=== PATIENT | female | born 1935 | race Caucasian/White ===

== ENCOUNTER → 2016-09-13 | Outpatient (CLI) | payer OTHER ==
[~2016-09-13] MED LIST: ASPI81TA28 PO; ATOR-22 PO; CHOL1000 PO; FERR1TAB62 PO; GLIM4TAB2 PO; HYDR-5688 PO; LISI-461 PO; OMEG10007 PO; PIOG1TAB20 PO; SITA100T3 PO; TIMO0.5S2 OPB
[2016-09-13 15:33] LABS: BASO % 1.2 %; BASO ABS # 0.09 K/uL (0-0.2); COMPLETE YES; EOS % 3.3 %; HEMATOCRIT 32.6 % (37-47); IG% 0.3 %; LYMPH % 21.9 %; LYMPH ABS # 1.68 K/uL (1.2-3.4); MEAN CELL VOLUME 95.6 fL (80-100); MEAN CORPUSCULAR HEMOGLOBIN 31.7 pg (25-34); MEAN CORPUSCULAR HGB CONC 33.1 g/dl (32-36); MEAN PLATELET VOLUME 8.7 fL (7.4-10.4); MONO % 8.5 %; NEUT % 64.8 %; PLATELET COUNT 319 K/uL (130-400); RED BLOOD COUNT 3.41 M/uL (4.2-5.4); WHITE BLOOD COUNT 7.66 K/uL (4.8-10.8)
[2016-09-13 16:01] LABS: BLOOD UREA NITROGEN 32 mg/dl (7-18); BUN/CREATININE RATIO 28.7 (10-20); CALCIUM 8.7 mg/dl (8.5-10.1); CARBON DIOXIDE 27 mmol/L (21-32); CHLORIDE 102 mmol/L (98-107); GLUCOSE 180 mg/dl (70-99); POTASSIUM 4.1 mmol/L (3.5-5.1); SODIUM 137 mmol/L (136-145)
== END | disposition home or self-care (01) ==
LOC: C.CPL 14:50
PROVIDERS: ATTEND Orthopaedic Surgery
DX: Z01.810 Encounter for preprocedural cardiovascular examination (principal); Z01.812 Encounter for preprocedural laboratory examination; R94.31 Abnormal electrocardiogram [ECG] [EKG]; M25.532 Pain in left wrist

== ENCOUNTER → 2016-09-22 | Day surgery (SDC) | payer OTHER ==
[2016-09-16 14:12] VITALS: Ht 156.2 cm; Wt 48.2 kg
[~2016-09-22] VITALS: Ht 156.2 cm; Wt 48.2 kg
[~2016-09-22] MED LIST changes: +ATROPINE SULFATE 0.1 MG/ML 5ML SYR IV PRN; +CEFAZOLIN 2000 MG/60 ML D5W IV SCH; +DEXAMETHASONE SOD INJ 4 MG/ML VIAL ONE; +EpHEDrine SULFATE INJ 50 MG/ML AMP IV PRN; +FENTANYL CITRATE INJ 50 MCG/1 ML 2 ML VIAL IV PRN; +FENTANYL CITRATE INJ 50 MCG/1 ML 2 ML VIAL ONE; +HYDROCODONE/ACETAMOPHEN 5/325MG TAB PO PRN; +LACTATED RINGER'S 1000ML 1,000 ML IV SCH; +LIDOCAINE HCL 2% 2 ML VIAL (20MG/ML) ONE; +LIDOCAINE HCL 2% LOCAL 20 ML VIAL ONE; +MIDAZOLAM HCL 1 MG/ML 2ML VIAL ONE; +ONDANSETRON INJ 2 MG/ML 2 ML VIAL IV PRN; +ONDANSETRON INJ 2 MG/ML 2 ML VIAL ONE; +PROPOFOL IV EMULSION 10 MG/ML 20 ML VIAL IV ONE; +SODIUM CHLORIDE 0.9% 1000ML 1,000 ML IV SCH
--- NOTE | 2016-09-22 08:39 | History & Physical Bridge - [place] ---
H&P Re-Evaluation Bridge Note: I have examined the patient, reviewed the History & Physical and in the interval since the performance of the History & Physical I have noted the following changes of clinical significance: No changes noted
--- NOTE | 2016-09-22 09:18 | Discharge Instructions-SurgCtr ---
Discharge Instructions Date of Service Sep 22, 2016. Visit Reason for Visit: Carpal Tunnel Syndrome Discharge Discharge Diagnosis / Problem: SAME ABOVE Discharge Goals Goal(s): Decrease discomfort, Improve function Activity Recommendations Activity Limitations: as noted below Lifting Limitations: no more than 10 pounds, until after follow-up appointment Exercise/Sports Limitations: until after follow-up appointment Anesthesia . Post Anesthesia Instructions: If you have had General Anesthesia or IV Sedation: * Do not drive today. * Resume driving when surgeon permits. * Do not make important decisions or sign legal documents today. * Call surgeon for: 1. Temperature elevations greater than 101 degrees F. 2. Uncontrollable pain. 3. Excessive bleeding. 4. Persistent nausea and vomiting. 5. Medication intolerance (nausea, vomiting or rash). * For nausea and vomiting use only clear liquids such as: tea, soda, bouillon until nausea subsides, then gradually increase diet as tolerated. * If you have any concerns or questions, call your surgeon's office. If physician is unavailable and it is an emergency, call 911 or go to the nearest emergency room. . Instructions / Follow-Up Instructions / Follow-Up MEDICATIONS: * Resume previous medications unless instructed otherwise by your surgeon. * Always take pain medication on a full stomach or with food to avoid upset stomach. * Do not drink alcohol or drive while taking narcotics. * Ibuprofen or Tylenol may be taken if narcotic not needed. SPECIAL CARE INSTRUCTIONS: __ None _X_ Keep extremity elevated and iced x 48 hours; apply ice 20-30 minutes 8-10 times/day. May remove at night. __ Sling __24 hrs/day __ Remove at night __ Shoulder Immobilizer __ 24 hrs/day __ Remove at night _X_ Dressing __ Maintain until seen in office, may shower with plastic over site _X_ Remove dressings in 5 DAYS. MAY SHOWER SOONER IF COVERED WITH PLASTIC BAG _X_ Cover incisions with band-aids after showering __ Do not remove steri-strips Call physician if chills or temperature rises above 102 degrees or pain unrelieved by prescribed pain medications at . . Diet Recommendations Home Diet: no limitations Fluid Restriction: None Procedures Procedures Performed: Left Carpal Tunnel Release Pending Studies Studies pending at discharge: no Work Instructions Lifting Limitations: no more than 10 pounds Medical Emergencies . Who to Call and When: Medical Emergencies: If at any time you feel your situation is an emergency, please call 911 immediately. . Non-Emergent Contact Non-Emergency issues call your: Primary Care Provider Call Non-Emergent contact if: you have a fever, temperature is above 101.5 . . "Provider Documentation" section prepared by Azael Mccarty.
[2016-09-22 09:19] VITALS: TEMP 36.3
--- NOTE | 2016-09-22 09:44 | OPERATIVE REPORT ---
DATE OF OPERATION: 09/22/2016 PREOPERATIVE DIAGNOSIS: Carpal tunnel syndrome, left wrist. POSTOPERATIVE DIAGNOSIS: Same. PROCEDURE: Open left carpal tunnel release. SURGEON: Dr. Yang Gallegos. REFRIGERATION INSULATOR: Chaka Mccarty PA-C, whose assistance was necessary for positioning the hand and helping with closure. ANESTHESIA: Local with sedation. COMPLICATIONS: None. CONDITION: Stable to PACU. INDICATIONS: Edie is an 80-year-old female who fractured her left wrist 3 months ago. She had a slight malunion. She has been suffering paresthesias in her left hand and elected to undergo an open left carpal tunnel release. OPERATION AND FINDINGS: On 09/22/2016 she arrived at [facility] for the above procedure. She was seen in the preoperative holding area and the operative extremity was identified and signed. She was given a preoperative antibiotic, taken back to the operating room, laid on the table in supine position and given basic sedation. The left hand was then prepped and draped in sterile fashion. Time-out was done and the patient's operative extremity was properly identified. The surgical site was anesthetized with 10 mL of lidocaine. A longitudinal incision was made directly over the transverse carpal ligament. Dissection was taken down through the palmar fascia and the ligament was exposed. A knife and tenotomy scissors were then used to resect the ligament. Complete resection was checked both proximally and distally. The wound was then irrigated and closed with 4-0 nylon sutures. She was placed in a soft dressing and taken to the postanesthesia care unit in stable condition. She tolerated the procedure well. I attest to the content of the Intraoperative Record and any orders documented therein. Any exceptio ns are noted below.
[2016-09-22 09:51] VITALS: BP 139/67; PULSE 66; O2SAT 96
--- NOTE | 2016-09-22 10:06 | Anesthesia Progress Nt - [facility] ---
Anesthesia Post Op Note Date & Time Sep 22, 2016 at 10:05 Vital Signs Pain Intensity: 0 Vital Signs Past 12 Hours Date Time Temp Pulse Resp B/P Pulse Ox O2 Delivery O2 Flow Rate FiO2 09/22/16 09:51 66 16 139/67 96 Room Air 09/22/16 09:19 36.3 72 16 114/64 98 Room Air 09/22/16 07:19 36.6 84 18 142/108 97 Room Air Notes Mental Status: alert / awake / arousable, participated in evaluation Pt Amnestic to Procedure: Yes Nausea / Vomiting: adequately controlled Pain: adequately controlled Airway Patency, RR, SpO2: stable & adequate BP & HR: stable & adequate Hydration State: stable & adequate Anesthetic Complications: no major complications apparent
--- NOTE | 2016-09-22 13:30 | [facility] Post Operative Brief Note ---
Immediate Operative Summary Operative Date Sep 22, 2016. Pre-Operative Diagnosis Left Carpal Tunnel Syndrome Post-Operative Diagnosis Same Procedure(s) Performed Left Carpal Tunnel Release Surgeon Dr Gallegos Tap Out Operator Surgeon(s) Chaka Mccarty PA-C Estimated Blood Loss Trace Findings as above Specimens None Complication(s) None Disposition Recovery Room / PACU
== END | disposition home or self-care (01) ==
LOC: X.SURG 07:12
PROVIDERS: ATTEND Orthopaedic Surgery
DX: G56.02 Carpal tunnel syndrome, left upper limb (principal); I10 Essential (primary) hypertension; E11.9 Type 2 diabetes mellitus without complications; E78.5 Hyperlipidemia, unspecified; Z82.49 Family history of ischemic heart disease and other diseases of the circulatory system; Z83.3 Family history of diabetes mellitus; Z98.890 Other specified postprocedural states; Z90.710 Acquired absence of both cervix and uterus

== ENCOUNTER 2021-01-23 12:14 | Observation (INO) ==
--- NOTE | 2021-01-23 12:08 | Emergency Department Note ---
History of Present Illness General Chief Complaint: TIA Symptoms Source: patient, family, EMS and RN notes reviewed Mode of arrival: EMS Limitations: no limitations History of Present Illness Provider Complaint: + weakness Onset (ago): hour(s) Last Known Well Time: 11:00 Timing confirmed by: + other (skilled nursing) Location: + left arm and + left leg History of same: No Severity: moderate Quality: + weak Relieved By: + none Exacerbated By: + none Context: + sudden onset On Anticoagulants: No Associated symptoms: + confusion and + headaches; no chest pain, no cough, no diaphoresis, no fever/chills, no loss of appetite, no nausea/vomiting, no vertigo or no shortness of breath Treatments Prior to Arrival: + other (Dextrose) HPI Narrative: Patient did present due to concern for left-sided weakness which was present around 11 AM. The patient was noted to be hypoglycemic in route and given D10. The patient had very subtle weakness and does have a history of dementia. Patient reportedly had a fall several days ago. The patient does not complain of any numbness but does have some difficulty she states when raising the left upper and left lower extremity but is able to do so. The patient does have a mild aching headache. Patient's son Brad eventually did present and states that she likely had a fall several days ago. Patient reportedly does not take any blood thinning medications. Patient does have a history of dementia but no prior history of stroke but has had strokelike symptoms most recently being seen within the last 1 to 2 weeks per the son. Home Medications Medication Instructions Recorded Confirmed Type acetaminophen 325 mg capsule 325 - 650 mg PO .EVERY 4-6HRS PRN 02/28/20 01/23/21 History MDD 3g atorvastatin 20 mg tablet 20 mg PO DAILY 02/28/20 01/23/21 History ferrous sulfate 325 mg (65 mg 325 mg PO BID 03/13/20 01/23/21 History iron) tablet glimepiride 2 mg tablet 2 mg PO DAILY tab 03/13/20 01/23/21 History lisinopril 10 mg tablet 10 mg PO QAM 03/13/20 01/23/21 History loteprednol etabonate 0.5 % eye 1 drp OPL [id number] 03/13/20 01/23/21 History gel drops (Lotemax) memantine 7 mg capsule 7 mg PO QAM 03/13/20 01/23/21 History sprinkle,extended release 24hr metformin 500 mg tablet 500 mg PO BID 03/13/20 01/23/21 History nepafenac 0.3 % eye 1 drp OPR DAILY 03/13/20 01/23/21 History drops,suspension (Ilevro) pioglitazone 45 mg tablet 45 mg PO QAM 03/13/20 01/23/21 History prednisolone acetate 1 % eye 1 drp OPR DAILY ml 03/13/20 01/23/21 History drops,suspension sitagliptin 100 mg tablet (Januvia) 100 mg PO DAILY 03/13/20 01/23/21 History timolol 0.5 % eye drops 1 drp OPB DAILY 03/13/20 01/23/21 History vit C 250 mg-vit E 90 mg-zinc 40 1 tab PO BID 03/13/20 01/23/21 History mg-copper 1 [id number] capsule (PreserVision AREDS-2) cholecalciferol (vitamin D3) 50 50 mcg PO DAILY 05/16/20 01/23/21 History mcg (2,000 unit) capsule (Vitamin D3) glimepiride 1 mg tablet 1 mg PO DAILY 09/21/20 01/23/21 History ciprofloxacin HCl 0.3 % eye drops See Rx Instructions OPHTHALMIC 10/14/20 01/23/21 Rx (EYE) .COMPLEX #10 ml meclizine 12.5 mg tablet 12.5 mg PO Q8H PRN 01/16/21 01/23/21 History Allergies Allergy/AdvReac Type Severity Reaction Status Date / Time ampicillin Allergy Unknown ITCHING Verified 01/23/21 14:35 RASH cortisone Allergy Unknown DIZZINESS Verified 01/23/21 14:35 Past Med/Surg History Medical History Anemia Cerumen impaction CKD (chronic kidney disease) stage 3, GFR 30-59 ml/min Endothelial corneal dystrophy of right eye Excessive cerumen in right ear canal Hyperlipidemia Mixed conductive and sensorineural hearing loss of right ear with restricted hearing of left ear Otitis externa Sensorineural hearing loss of both ears Surgical History History of eye surgery endometrial layer replacement, left & right, 2019 & 2019. Family History Father Hearing loss Hypertension Heart disease Other No family history of adverse response to anesthesia No family history of bleeding disorder Social History Smoking Status: Never smoker Hx Alcohol Use: No Hx Substance Use: No Preferred Language: Tunisian marital status: / Current Living Situation: Personal Care Facility current occupational status: retired Feels Safe at Home: Yes Review of Systems See HPI for pertinent positives & negatives. and A total of 10 systems reviewed and were otherwise negative Physical Exam Vital Signs: Vital Signs - 24 hr 01/23/21 12:30 01/23/21 12:39 01/23/21 13:01 Temperature 36.8 C Temperature Source Oral Pulse Rate 74 72 72 Pulse Rate from Sp O2 Sensor 73 Respiratory Rate 17 18 15 Blood Pressure 135/66 135/66 111/60 Blood Pressure Rasheeda n 89 89 77 Pulse Oximetry 94 95 Oxygen Delivery Me thod Room Air Sepsis Recent Feve r Within 48 Hours No Sepsis New/Unexpla ined Change in Men ilia Status No Sepsis Action Take n by Nursing No Action Required 01/23/21 13:30 01/23/21 14:00 Temperature Temperature Source Pulse Rate 70 72 Pulse Rate from Sp O2 Sensor Respiratory Rate 17 19 Blood Pressure 116/65 132/101 H Blood Pressure Rasheeda n 82 111 Pulse Oximetry Oxygen Delivery Me thod Sepsis Recent Feve r Within 48 Hours Sepsis New/Unexpla ined Change in Men ilia Status Sepsis Action Take n by Nursing Physical Exam: GENERAL: Wearing a mask. NAD, non-toxic. EYE EXAM: Normal conjunctiva. PERRL, no anisocoria and EOM's grossly intact w/o pain. NECK: Supple, no nuchal rigidity, no adenopathy, non-tender. No signs of meningismus. LUNGS: Clear to auscultation. Normal chest wall mechanics. HEART: NSR, no MRG. ABDOMEN: Abdomen soft, non-tender, normo-active bowel sounds, no masses, no rebound or guarding. BACK: No CVA TTP. SKIN: No rashes and no bruising. UPPER EXTREMITIES: Upper extremities are grossly normal. LOWER EXTREMITIES: Grossly normal, no edema. NEURO EXAM: Awake and alert and does follow basic commands, cranial nerves II- XII grossly intact, normal speech, moves all 4 extremities and is able to keep the left upper and left lower extremity off of the bed against gravity for prolonged period of time. Course Course Cardiac monitoring: An order was placed for continuous cardiac monitoring. The monitor shows a rate of 72 with regular rhythm. Administered Medications Lorazepam (Ativan) 0.25 mg in 0.5 mls @ 0.5 mls/min IV Q4H PRN PRN Reason: Agitation Stop: 02/22/21 15:55 Last Admin: 01/23/21 16:15 Dose: 0.5 mls/min Documented by: [id number] Discontinued Medications Aspirin (Aspirin Chew 324 Mg) 324 mg PO NOW STA Stop: 01/23/21 14:10 Last Admin: 01/23/21 14:20 Dose: 324 mg Documented by: [id number] Sodium Chloride (Nss) 500 mls @ 999 mls/hr IV .Q31M ONE Stop: 01/23/21 14:12 Last Infusion: 01/23/21 14:33 Dose: 0 mls/hr Documented by: [id number] Admin: 01/23/21 13:59 Dose: 999 mls/hr Documented by: [id number] Lorazepam (Ativan) 0.25 mg in 0.5 mls @ 0.5 mls/min IV NOW STA Stop: 01/23/21 15:57 Last Admin: 01/23/21 16:05 Dose: 0.5 mls/min Documented by: [id number] Ioversol (Optiray 320 125ml) 120 ml IV ONCE ONE Stop: 01/23/21 12:29 Last Admin: 01/23/21 12:28 Dose: 120 ml Documented by: [id number] Medical Decision Making Differential Diagnosis Infection, dehydration, metabolic abnormality, hypo/hyperglycemia, electrolyte disturbance, anemia, hypoxia, cardiac sources, intracerebral event, toxicologic, neurologic, as well as other pathologies. Medical Records Attestation: I reviewed the patient's medical records. Home Medications Current Medication List: was personally reviewed by me Laboratory Data Attestation: I reviewed the patient's lab results. Result diagrams: 01/23/21 12:34 01/23/21 12:34 Lab Results 01/23/21 01/23/21 01/23/21 Range/Units 12:34 12:34 12:34 WBC 8.09 (4.8-10.8) K/uL RBC 2.97 L (4.2-5.4) M/uL Hgb 9.5 L (12.0-16.0) g/dL Hct 29.0 L (37-47) % MCV 97.6 (80-100) fL MCH 32.0 (25-34) pg MCHC 32.8 (32-36) g/dL RDW Std Deviation 46.1 (36.4-46.3) fL RDW Coeff of Natalie 12.8 (11.5-14.5) % Plt Count 360 (130-400) K/uL MPV 8.4 (7.4-10.4) fL Immature Gran % (Auto) 0.1 % Neut % (Auto) 68.8 % Lymph % (Auto) 19.5 % Saunders % (Auto) 7.8 % Eos % (Auto) 3.2 % Baso % (Auto) 0.6 % Neut # (Auto) 5.56 (1.4-6.5) K/uL Lymph # (Auto) 1.58 (1.2-3.4) K/uL Saunders # (Auto) 0.63 H (0.11-0.59) K/uL Eos # (Auto) 0.26 (0-0.5) K/uL Baso # (Auto) 0.05 (0-0.2) K/uL Immature Gran # (Auto) 0.01 (0.00-0.02) K/uL PT 10.5 (9.0-12.0) Seconds INR 1.0 (0.9-1.1) APTT 24.2 (21.0-31.0) Seconds PTT Ratio 0.9 Sodium (136-145) mmol/L Potassium (3.5-5.1) mmol/L Chloride (98-107) mmol/L Carbon Dioxide (21-32) mmol/L Anion Gap (3-11) BUN (7-18) mg/dl Creatinine (0.6-1.2) mg/dl Est Cr Clr Drug Dosing ml/min Est GFR ( Amer) ml/min Est GFR (Non-Af Amer) ml/min BUN/Creatinine Ratio (10-20) Glucose (70-99) mg/dl POC Glucose (70-99) mg/dl Osmolality (280-300) mOsm/kg Calcium (8.5-10.1) mg/dl Magnesium (1.8-2.4) mg/dl Total Bilirubin (0.2-1) mg/dl AST (15-37) U/L ALT (12-78) U/L Alkaline Phosphatase (45-117) U/L Troponin I (0-0.045) ng/ml Total Protein (6.4-8.2) gm/dl Albumin (3.4-5.0) gm/dl Globulin (2.5-4.0) gm/dl Albumin/Globulin Ratio (0.9-2) COVID-19 Eval Order SARS-CoV-2 (PCR) (Negative) Blood Type A Positive Antibody Screen NEGATIVE 01/23/21 01/23/21 01/23/21 Range/Units 12:34 12:35 12:36 WBC (4.8-10.8) K/uL RBC (4.2-5.4) M/uL Hgb (12.0-16.0) g/dL Hct (37-47) % MCV (80-100) fL MCH (25-34) pg MCHC (32-36) g/dL RDW Std Deviation (36.4-46.3) fL RDW Coeff of Natalie (11.5-14.5) % Plt Count (130-400) K/uL MPV (7.4-10.4) fL Immature Gran % (Auto) % Neut % (Auto) % Lymph % (Auto) % Saunders % (Auto) % Eos % (Auto) % Baso % (Auto) % Neut # (Auto) (1.4-6.5) K/uL Lymph # (Auto) (1.2-3.4) K/uL Saunders # (Auto) (0.11-0.59) K/uL Eos # (Auto) (0-0.5) K/uL Baso # (Auto) (0-0.2) K/uL Immature Gran # (Auto) (0.00-0.02) K/uL PT (9.0-12.0) Seconds INR (0.9-1.1) APTT (21.0-31.0) Seconds PTT Ratio Sodium 130 L (136-145) mmol/L Potassium 4.3 (3.5-5.1) mmol/L Chloride 99 (98-107) mmol/L Carbon Dioxide 27 (21-32) mmol/L Anion Gap 4.0 (3-11) BUN 46 H (7-18) mg/dl Creatinine 1.27 H (0.6-1.2) mg/dl Est Cr Clr Drug Dosing 22.4 ml/min Est GFR ( Amer) 43.9 ml/min Est GFR (Non-Af Amer) 37.9 ml/min BUN/Creatinine Ratio 36.3 H (10-20) Glucose 161 H (70-99) mg/dl POC Glucose 174 H (70-99) mg/dl Osmolality 301 H (280-300) mOsm/kg Calcium 8.4 L (8.5-10.1) mg/dl Magnesium 2.1 (1.8-2.4) mg/dl Total Bilirubin 0.2 (0.2-1) mg/dl AST 13 L (15-37) U/L ALT 11 L (12-78) U/L Alkaline Phosphatase 115 (45-117) U/L Troponin I < 0.015 (0-0.045) ng/ml Total Protein 6.5 (6.4-8.2) gm/dl Albumin 3.2 L (3.4-5.0) gm/dl Globulin 3.3 (2.5-4.0) gm/dl Albumin/Globulin Ratio 1.0 (0.9-2) COVID-19 Eval Order SARS-CoV-2 (PCR) (Negative) Blood Type Antibody Screen 01/23/21 01/23/21 Range/Units 14:15 14:15 WBC (4.8-10.8) K/uL RBC (4.2-5.4) M/uL Hgb (12.0-16.0) g/dL Hct (37-47) % MCV (80-100) fL MCH (25-34) pg MCHC (32-36) g/dL RDW Std Deviation (36.4-46.3) fL RDW Coeff of Natalie (11.5-14.5) % Plt Count (130-400) K/uL MPV (7.4-10.4) fL Immature Gran % (Auto) % Neut % (Auto) % Lymph % (Auto) % Saunders % (Auto) % Eos % (Auto) % Baso % (Auto) % Neut # (Auto) (1.4-6.5) K/uL Lymph # (Auto) (1.2-3.4) K/uL Saunders # (Auto) (0.11-0.59) K/uL Eos # (Auto) (0-0.5) K/uL Baso # (Auto) (0-0.2) K/uL Immature Gran # (Auto) (0.00-0.02) K/uL PT (9.0-12.0) Seconds INR (0.9-1.1) APTT (21.0-31.0) Seconds PTT Ratio Sodium (136-145) mmol/L Potassium (3.5-5.1) mmol/L Chloride (98-107) mmol/L Carbon Dioxide (21-32) mmol/L Anion Gap (3-11) BUN (7-18) mg/dl Creatinine (0.6-1.2) mg/dl Est Cr Clr Drug Dosing ml/min Est GFR ( Amer) ml/min Est GFR (Non-Af Amer) ml/min BUN/Creatinine Ratio (10-20) Glucose (70-99) mg/dl POC Glucose (70-99) mg/dl Osmolality (280-300) mOsm/kg Calcium (8.5-10.1) mg/dl Magnesium (1.8-2.4) mg/dl Total Bilirubin (0.2-1) mg/dl AST (15-37) U/L ALT (12-78) U/L Alkaline Phosphatase (45-117) U/L Troponin I (0-0.045) ng/ml Total Protein (6.4-8.2) gm/dl Albumin (3.4-5.0) gm/dl Globulin (2.5-4.0) gm/dl Albumin/Globulin Ratio (0.9-2) COVID-19 Eval Order Covid19 at [facility] SARS-CoV-2 (PCR) NEGATIVE (Negative) Blood Type Antibody Screen Imaging Data Radiologist's Impression: Chest X-Ray 01/23/21 12:07 XR chest 1V portable HISTORY: 85 years-old Female Stroke Like Symptoms acute strokelike symptoms COMPARISON: Chest radiograph 01/16/2021 and 11/06/2020 TECHNIQUE: Portable AP view of the chest FINDINGS: Cardiac silhouette is mildly enlarged. Dense mitral annular calcifications. Chronic interstitial coarsening without pneumothorax, pleural effusion, airspace consolidation or overt pulmonary edema. Ill-defined opacity of the right upper lung is likely secondary to summation density with overlying the right posterior sixth rib. Acute appearing mildly displaced fracture of the distal right clavicle is new from 01/16/2021. Chronic appearing fracture of the posterior right sixth rib. Degenerative changes of the shoulders and spine. Acute versus subacute nondisplaced fracture of the lateral left ninth rib. Chronic bilateral rib fractures. IMPRESSION: 1. Cardiomegaly with chronic interstitial coarsening. 2. Ill-defined opacity of the right upper lung suggests summation density. Subtle airspace disease or pulmonary nodule considered less likely. 3. Acute appearing mildly displaced fracture of the distal right clavicle is new from 01/16/2021. 4. Acute versus subacute slightly displaced fracture of the lateral left ninth rib. ACT 112: Negative or not required by law. The above report was generated using voice recognition software. It may contain grammatical, syntax or spelling errors. Electronically signed by: Rashaad Chowdhury M.D. 01/23/2021 12:[address] 01/23/21 12:07 CT head/brain wo con CLINICAL HISTORY: 85 years-old Female with Stroke Like Symptoms. Acute strokelike symptoms TECHNIQUE: Multiple axial CT images of the head were obtained without contrast. A dose lowering technique was utilized adhering to the principles of ALARA. CT DOSE: 729.78 mGycm COMPARISON: None. FINDINGS: No acute intracranial hemorrhage, midline shift, intracranial mass, territorial ischemia or abnormal extra-axial collection. Age-related involutional changes. White matter hypodensities suggestive of chronic microvascular ischemic disease. Cavum septum pellucidum and vergae. Dilation of the lateral and third ventricles redemonstrated. Transverse dimension of the lateral ventricles measures 5.6 cm. The calvarium is intact. Trace mastoid effusions. Paranasal sinuses are clear. Prior bilateral lens repair. IMPRESSION: 1. No acute intracranial abnormality. 2. Age-related involutional changes with chronic microvascular ischemic disease. 3. Dilation of the ventricular system is dating back to 05/16/2020 and likely on an ex vacuo basis. Normal pressure hydrocephalus is an additional differential consideration. ACT 112: Negative or not required by law. The above report was generated using voice recognition software. It may contain grammatical, syntax or spelling errors. Electronically signed by: Rashaad Chwodhury M.D. 01/23/2021 12:52 PM Head CTA 01/23/21 12:07 CT angio neck with con, CT angio head w con CLINICAL HISTORY: 85 years-old Female with Stroke Like Symptoms. Acute str okelike symptoms COMPARISON STUDY: Head CT of same day TECHNIQUE: Following the IV administration of 120 mL of Optiray, CT angiogram of the head and neck was performed from the aortic arch to the skull apex. Images are reviewed in the axial, sagittal, and coronal planes. 3-D MIPS images are cre ated and assessed. IV contrast was administered without complication. All measurements were calculated based on NASCET criteria. A dose lowering technique was utilized adhering to the principles of ALARA. CT DOSE: 780.76 mGycm FINDINGS: Three-vessel morphology of the thoracic aortic arch. Motion degraded exam. Patency of the innominate and imaged subclavian arteries. The common carotid arteries are patent. Mild atherosclerotic plaque of the right carotid bulb and proximal right ICA results in less than 50% luminal narrowing. There is slightly diminished flow within the M2 and M3 branches on the right compared to the left. Moderate atherosclerotic plaque of the left carotid bulb and proximal left ICA results in approximately 75% luminal narrowing. Calcified plaque of the cavernous and supraclinoid segments of the internal carotid arteries. High-grade stenosis involves the proximal and mid aspects of the right middle cerebral artery on image 128. The left middle and bilateral anterior cerebral arteries are patent. Dominant right vertebral artery. The right vertebral artery is patent. 50% luminal narrowing involves the V2 segment left vertebral artery at the level of C3-C4 secondary to facet arthrosis and uncovertebral spurring of the cervical spine on image 208. Portions of the distal left vertebral artery suboptimally visualized secondary to motion artifact. The basilar artery is patent. origin of the right posterior cerebral artery. The bilateral posterior cerebral arteries are patent. Cerebral venous sinuses are patent. Age-related involutional changes with unchanged ventriculomegaly. 1.1 cm centrally calcified extra-axial focus adjacent to the superior right frontal lobe on image 254 may reflect a small meningioma. Pleural parenchymal scarring of the lung apices with nodular foci of the left lung apex measuring up to 7 mm. There is no pneumothorax. Unremarkable soft tissues. IMPRESSION: 1. Moderate atherosclerosis of the left carotid bulb results in 75% stenosis of the proximal cervical segment left ICA. 2. High-grade stenosis of the right M1 segment. 3. 50% luminal narrowing of the V2 segment left vertebral artery at the level of C3-C4 secondary to facet arthrosis and uncovertebral spurring. 4. Additional findings as above. ACT 112: Negative or not required by law. The above report was generated using voice recognition software. It may contain grammatical, syntax or spelling errors. Electronically signed by: Rashaad Chowdhury M.D. 01/23/2021 1:02 PM Neck CTA 01/23/21 12:07 CT angio neck with con, CT angio head w con CLINICAL HISTORY: 85 years-old Female with Stroke Like Symptoms. Acute strokelike symptoms COMPARISON STUDY: Head CT of same day TECHNIQUE: Following the IV administration of 120 mL of Optiray, CT angiogram of the head and neck was performed from the aortic arch to the skull apex. Images are reviewed in the axial, sagittal, and coronal planes. 3-D MIPS images are created and assessed. IV contrast was administered without complication. All measurements were calculated based on NASCET criteria. A dose lowering technique was utilized adhering to the principles of ALARA. CT DOSE: 780.76 mGycm FINDINGS: Three-vessel morphology of the thoracic aortic arch. Motion degraded exam. Patency of the innominate and imaged subclavian arteries. The common carotid arteries are patent. Mild atherosclerotic plaque of the right carotid bulb and proximal right ICA results in less than 50% luminal narrowing. There is slightly diminished flow within the M2 and M3 branches on the right compared to the left. Moderate atherosclerotic plaque of the left carotid bulb and proximal left ICA results in approximately 75% luminal narrowing. Calcified plaque of the cavernous and supraclinoid segments of the internal carotid arteries. High-grade stenosis involves the proximal and mid aspects of the right middle cerebral artery on image 128. The left middle and bilateral anterior cerebral arteries are patent. Dominant right vertebral artery. The right vertebral artery is patent. 50% luminal narrowing involves the V2 segment left vertebral artery at the level of C3-C4 secondary to facet arthrosis and uncovertebral spurring of the cervical spine on image 208. Portions of the distal left vertebral artery suboptimally visualized secondary to motion artifact. The basilar artery is patent. origin of the right posterior cerebral artery. The bilateral posterior cerebral arteries are patent. Cerebral venous sinuses are patent. Age-related involutional changes with unchanged ventriculomegaly. 1.1 cm centrally calcified extra-axial focus adjacent to the superior right frontal lobe on image 254 may reflect a small meningioma. Pleural parenchymal scarring of the lung apices with nodular foci of the left lung apex measuring up to 7 mm. There is no pneumothorax. Unremarkable soft tissues. IMPRESSION: 1. Moderate atherosclerosis of the left carotid bulb results in 75% stenosis of the proximal cervical segment left ICA. 2. High-grade stenosis of the right M1 segment. 3. 50% luminal narrowing of the V2 segment left vertebral artery at the level of C3-C4 secondary to facet arthrosis and uncovertebral spurring. 4. Additional findings as above. ACT 112: Negative or not required by law. The above report was generated using voice recognition software. It may contain grammatical, syntax or spelling errors. Electronically signed by: Rashaad Chowdhury M.D. 01/23/2021 1:02 PM ECG Data Attestation: I personally reviewed and interpreted this ECG as follows: Additional Comments: Normal sinus rhythm, rate of 75, normal intervals, left axis deviation, no obvious ST changes or T WI. No significant change from co mparison EKG January 16, 2021 MDM Narrative Patient did present with concern for left-sided weakness that began around 11 AM at [facility]. I did receive a medical command call. The patient was mildly hypoglycemic and they were running dextrose so I did asked that they take her directly to CT but the patient would be evaluated prior to calling a stroke alert. Upon presentation and a room after CAT scans patient is awake alert does follow commands. The patient is able to raise her left upper and left lower extremity off the bed for 10 seconds at a time. The patient does not have any sensory deficits. The patient does have some occasional confusion but no slurred speech. The patient's repeat blood sugar was greater than 100. The patient has normal white count with mild anemia at 9.5. Platelet count is unremarkable. Kidney function with a creatinine 1.2 sodium 130. The patient was ordered IV fluids. Mild hypocalcemia 8.4. The patient's EKG with no signs of obvious arrhythmia. The patient CT angios did show concern for high-grade stenosis of the right M1 which would likely explain the patient's weakness. I did discuss the patient's case with on-call telestroke Dr. Capps. He stated that typically at this age with a history of dementia that they are typically not amenable to intervention but this could be on a [id number]-onal basis. In the interim he did recommend aspirin 325 load provided that the patient passes a dysphagia screen. She may then be transition to 81 mg. If the patient has any stuttering symptoms he recommends a Plavix load of 300 mg. He did recommend MR brain to rule out microbleed or other concern. I did ask if the patient did develop dense left-sided hemiparesis or M1 occlusion what to do. He recommended obtaining a repeat imaging in 2 initiate a code stroke at which point the patient would be discussed with himself as well as possibly with the interventionalists. He also did did recommend lipid profile and if the patient's lipids are still high then may increase her atorvastatin from 20 to 40 mg. I did speak with the on-call hospitalist Luna Rush PA-C. I did convey the recommendations as discussed with Dr. Capps. Patient will be admitted by Dr. Venegas I did convey these findings and recommendations to the patient's son at bedside, Brad, who is the patient's POA. He is in agreement with plan of care. I had initially discussed with Brad deferring TPA treatment at this time given that the patient has very subtle symptoms and he was in agreement at the time of presentation given her PMHx. Impression & Plan Arterial stenosis, Hypoglycemia, Hypocalcemia, Acute hyponatremia Discharge Plan Visit Data Chief Complaint: TIA Symptoms ED Provider: John Manley Discharge Problem: Arterial stenosis, Hypoglycemia, Hypocalcemia, Acute hyponatremia Patient Disposition: Admitted As Inpatient Discharge Instructions Interventions: ED Discharge Assessment Last Done: 01/23/21 16:43
[2021-01-23] MEDS ORDERED: OPTIRAY 320 125ml IV ONE (12:28)
--- NOTE | 2021-01-23 12:42 | XRay Report ---
XR chest 1V portable HISTORY: 85 years-old Female Stroke Like Symptoms acute strokelike symptoms COMPARISON: Chest radiograph 01/16/2021 and 11/06/2020 TECHNIQUE: Portable AP view of the chest FINDINGS: Cardiac silhouette is mildly enlarged. Dense mitral annular calcifications. Chronic interstitial coar sening without pneumothorax, pleural effusion, airspace consolidation or overt pulmonary edema. Ill-d efined opacity of the right upper lung is likely secondary to summation density with overlying the ri ght posterior sixth rib. Acute appearing mildly displaced fracture of the distal right clavicle is ne w from 01/16/2021. Chronic appearing fracture of the posterior right sixth rib. Degenerative changes of the shoulders and spine. Acute versus subacute nondisplaced fracture of the lateral left ninth rib. Chronic bilateral rib fractures. IMPRESSION: 1. Cardiomegaly with chronic interstitial coarsening. 2. Ill-defined opacity of the right upper lung suggests summation density. Subtle airspace disease or pulmonary nodule considered less likely. 3. Acute appearing mildly displaced fracture of the distal right clavicle is new from 01/16/2021. 4. Acute versus subacute slightly displaced fracture of the lateral left ninth rib. ACT 112: Negative or not required by law. The above report was generated using voice recognition software. It may contain grammatical, syntax o r spelling errors. Electronically signed by: Rashaad Chowdhury M.D. 01/23/2021 12:41 PM
[2021-01-23 12:48] LABS: Basophils # (auto) 0.05 K/uL (0-0.2); Basophils % (auto) 0.6 %; Eosinophils # (auto) 0.26 K/uL (0-0.5); Eosinophils % (auto) 3.2 %; Hemoglobin 9.5 g/dL (12.0-16.0); Immature Granulocytes # (auto) 0.01 K/uL (0.00-0.02); Immature Granulocytes % (auto) 0.1 %; Lymphocytes # (auto) 1.58 K/uL (1.2-3.4); Lymphocytes % (auto) 19.5 %; Mean Corpuscular Hgb Conc 32.8 g/dL (32-36); Mean Corpuscular Volume 97.6 fL (80-100); Mean Platelet Volume 8.4 fL (7.4-10.4); Monocytes # (auto) 0.63 K/uL (0.11-0.59); Monocytes % (auto) 7.8 %; Neutrophils # (auto) 5.56 K/uL (1.4-6.5); Neutrophils % (auto) 68.8 %; Platelet Count 360 K/uL (130-400); RDW Coefficient of Variation 12.8 % (11.5-14.5); RDW Standard Deviation 46.1 fL (36.4-46.3); Red Blood Count 2.97 M/uL (4.2-5.4); White Blood Count 8.09 K/uL (4.8-10.8)
--- NOTE | 2021-01-23 12:54 | CT Scan Report ---
CT head/brain wo con CLINICAL HISTORY: 85 years-old Female with Stroke Like Symptoms. Acute strokelike symptoms TECHNIQUE: Multiple axial CT images of the head were obtained without contrast. A dose lowering tech nique was utilized adhering to the principles of ALARA. CT DOSE: 729.78 mGycm COMPARISON: None. FINDINGS: No acute intracranial hemorrhage, midline shift, intracranial mass, territorial ischemia or abnormal extra-axial collection. Age-related involutional changes. White matter hypodensities suggestive of ch ronic microvascular ischemic disease. Cavum septum pellucidum and vergae. Dilation of the lateral and third ventricles redemonstrated. Transverse dimension of the lateral ventricles measures 5.6 cm. The calvarium is intact. Trace mastoid effusions. Paranasal sinuses are clear. Prior bilateral lens repair. IMPRESSION: 1. No acute intracranial abnormality. 2. Age-related involutional changes with chronic microvascular ischemic disease. 3. Dilation of the ventricular system is dating back to 05/16/2020 and likely on an ex vacuo basis. No rmal pressure hydrocephalus is an additional differential consideration. ACT 112: Negative or not required by law. The above report was generated using voice recognition software. It may contain grammatical, syntax o r spelling errors. Electronically signed by: Rashaad Chowdhury M.D. 01/23/2021 12:52 PM
[2021-01-23 13:03] LABS: Partial Thromboplastin Ratio 0.9; Partial Thromboplastin Time 24.2 Seconds (21.0-31.0); Prothrombin Time 10.5 Seconds (9.0-12.0)
--- NOTE | 2021-01-23 13:04 | CT Scan Report ---
CT angio neck with con, CT angio head w con CLINICAL HISTORY: 85 years-old Female with Stroke Like Symptoms. Acute strokelike symptoms COMPARISON STUDY: Head CT of same day TECHNIQUE: Following the IV administration of 120 mL of Optiray, CT angiogram of the head and neck wa s performed from the aortic arch to the skull apex. Images are reviewed in the axial, sagittal, and c oronal planes. 3-D MIPS images are created and assessed. IV contrast was administered without complic ation. All measurements were calculated based on NASCET criteria. A dose lowering technique was util ized adhering to the principles of ALARA. CT DOSE: 780.76 mGycm FINDINGS: Three-vessel morphology of the thoracic aortic arch. Motion degraded exam. Patency of the innominate and imaged subclavian arteries. The common carotid arteries are patent. Mil d atherosclerotic plaque of the right carotid bulb and proximal right ICA results in less than 50% carlos manuel smita narrowing. There is slightly diminished flow within the M2 and M3 branches on the right compare d to the left. Moderate atherosclerotic plaque of the left carotid bulb and proximal left ICA results in approximately 75% luminal narrowing. Calcified plaque of the cavernous and supraclinoid segments of the internal carotid arteries. High-grade stenosis involves the proximal and mid aspects of the ri ght middle cerebral artery on image 128. The left middle and bilateral anterior cerebral arteries are patent. Dominant right vertebral artery. The right vertebral artery is patent. 50% luminal narrowing involves the V2 segment left vertebral artery at the level of C3-C4 secondary to facet arthrosis and uncovert ebral spurring of the cervical spine on image 208. Portions of the distal left vertebral artery subop timally visualized secondary to motion artifact. The basilar artery is patent. origin of the ri ght posterior cerebral artery. The bilateral posterior cerebral arteries are patent. Cerebral venous sinuses are patent. Age-related involutional changes with unchanged ventriculomegaly. 1.1 cm centrally calcified extra-ax ial focus adjacent to the superior right frontal lobe on image 254 may reflect a small meningioma. Pl eural parenchymal scarring of the lung apices with nodular foci of the left lung apex measuring up to 7 mm. There is no pneumothorax. Unremarkable soft tissues. IMPRESSION: 1. Moderate atherosclerosis of the left carotid bulb results in 75% stenosis of the proximal cervical segment left ICA. 2. High-grade stenosis of the right M1 segment. 3. 50% luminal narrowing of the V2 segment left vertebral artery at the level of C3-C4 secondary to f acet arthrosis and uncovertebral spurring. 4. Additional findings as above. ACT 112: Negative or not required by law. The above report was generated using voice recognition software. It may contain grammatical, syntax o r spelling errors. Electronically signed by: Rashaad Chowdhury M.D. 01/23/2021 1:02 PM
[2021-01-23 13:05] LABS: Alanine Aminotransferase 11 U/L (12-78); Albumin Level 3.2 gm/dl (3.4-5.0); Aspartate Aminotransferase 13 U/L (15-37); BUN Creatinine Ratio 36.3 (10-20); Blood Urea Nitrogen 46 mg/dl (7-18); Calcium 8.4 mg/dl (8.5-10.1); Carbon Dioxide 27 mmol/L (21-32); Chloride 99 mmol/L (98-107); Creatinine Clr Calc Pharmacy 22.4 ml/min; Est GFR (African American) 43.9 ml/min; Est GFR (Non-African American) 37.9 ml/min; Glucose 161 mg/dl (70-99); Magnesium 2.1 mg/dl (1.8-2.4); Potassium 4.3 mmol/L (3.5-5.1); Sodium 130 mmol/L (136-145)
[2021-01-23 13:10] LABS: Alkaline Phosphatase 115 U/L (45-117); Bilirubin,Total 0.2 mg/dl (0.2-1); Globulin 3.3 gm/dl (2.5-4.0); Total Protein 6.5 gm/dl (6.4-8.2); Troponin I < 0.015 ng/ml (0-0.045)
[2021-01-23] MEDS ORDERED: SODIUM CHLORIDE 0.9% 500 ML IV ONE (13:42)
[2021-01-23] MEDS ORDERED: ASPIRIN CHEW 324 MG PO STA (14:09)
[2021-01-23] MEDS ORDERED: LORazepam 0.25 MG/0.5 ML VIAL IV PRN (15:56)
[2021-01-23] MEDS ORDERED: LORazepam 0.25 MG/0.5 ML VIAL IV STA (15:56)
--- NOTE | 2021-01-23 16:53 | History & Physical Report ---
Date of Service January 23, 2021 Assessment & Plan (1) Stroke-like symptoms: (2) Arterial stenosis: Plan: This is an 85-year-old female who resides in personal care who has significant past medical history of dementia, HTN, HLD, endothelial corneal dystrophy, T2DM, HLD, anemia who presents to ED secondary to weakness x1 day. Moderate atherosclerosis of the left carotid bulb results in 75% stenosis of the proximal cervical segment left ICA. High-grade stenosis of the right M1 segment. 50% luminal narrowing of the V2 segment left vertebral artery at the level of C3-C4 secondary to facet arthrosis and uncovertebral spurring. Case discussed with ED provider and tele stroke Dr. Capps. Given age and dementia typically not amenable to intervention. Recommendation was for load with 325mg ASA. Then transition to 81mg daily. He further recommends if pt exhibits stuttering sx then adding plavix load 300mg daily. MRI brain recommended which revealed: 1. 4 mm focus of slightly increased diffusion-weighted signal involving the right external capsule is favored to be artifact. A tiny subacute lacunar infarct could appear similarly.2. Age-related involutional changes with unchanged ventriculomegaly. 3. Moderate to extensive chronic microvascular ischemic disease. 4. Left mastoid effusion. IF pt were to develop dense L sided HP or M1 occlusion recommendation would be to code stroke again to discuss possible intervention. TPA was not recommended. admit to PCU consult neurology obtain echo obtain orthostatics as pt son states she has been c/o dizziness which may be contributing to falls will hold antihypertensive for now received 325mg ASA in ED, start 81mg in a.m. defer plavix initation to neuro on statin 20mg daily - if Lipid panel abnormal increase to 40mg (3) Acute hyponatremia: Plan: Na 130, on 01/16 136, likely acute serum osm, urine osm, urine na ordered likely hypovolemic hypotonic prerenal insufficiency repeat chemistry this evening and in a.m. (4) Clavicle fracture: (5) Closed rib fracture: Plan: mildly displaced fracture of the distal right clavicle Lateral 9th rib fx pt with multiple falls per son and c/o dizziness sling to RUE, apply lidoderm patch consult ortho, likely conservative management given pt with dementia difficult to assess when in pain monitor for other s/sx pt may be in pain (6) Anemia: Plan: H/H 9.5 and 29.0 baseline around 10-11 on iron supplement check anemia panel (7) Acute renal insufficiency: (8) CKD (chronic kidney disease) stage 3, GFR 30-59 ml/min: Plan: baseline renal fxn 1-1.1 bun/cr elevated 46 and 1.27 likely pre renal gentle hydration, follow fxn (9) Dementia: Plan: mood stable continue namenda (10) Ventricular dilation: Plan: Per CT head: Dilation of the ventricular system is dating back to 05/16/2020 and likely on an ex vacuo basis Per MRI: Age-related involutional changes with unchanged ventriculomegaly (11) Diabetes: Plan: unknown last a1c reported per EMS pt bsg in 50s lantus/novolog for protocol monitor for hypoglycemia spot check at 2am (12) Hypertension: Plan: blood pressure on lower side hold antihypertensives in setting of stroke work up to allow for permissive HTN (13) Hyperlipidemia: Plan: continue statin (14) Endothelial corneal dystrophy of right eye: Plan: continue eye gtts DVT ppx: SCD/TEDS for now, monitor daily need for chemical ppx Dispo: PCU PCP: Margarito at [facility] DNR/DNI - discussed with son at bedside Pt was seen and examined in collaboration with Dr. Venegas, please see addendum History of Present Illness Chief Complaint: Weakness x 1 day. Primary Care Provider: John Pimentel, This is an 85-year-old female who resides in personal care who has significant past medical history of dementia, HTN, HLD, endothelial corneal dystrophy, T2DM, HLD, anemia who presents to ED secondary to weakness x1 day. Per nursing staff patient developed left-sided weakness at approximately 11 AM. She was also noted to be hypoglycemic with blood sugars in the 50s and received D10. She d oes have underlying dementia and therefore history is unobtainable from patient. Son is at bedside. He states over the past few weeks patient has had frequent falls. She will get up on her own and fall. Last fall was 2 to 3 days ago. Per son patient symptoms had resolved by the time she was received in the ED. Son denies any prior history of stroke. Son is concerned due to patient's frequent falls and constant complaints of dizziness. Patient was made a telemetry stroke. Case was discussed with the ED provider. She underwent CT head and neck which revealed high-grade M1 stenosis as well as left vertebral artery stenosis. Telemetry neurologist recommended no acute intervention at this time given age and dementia and likely not amenable. He did recommend loading with aspirin and if she were to have stutter symptoms to load with Plavix. She did receive 325 mg of aspirin in the ED. she underwent MRI did reveal a 4 mm focus in the right internal capsule favored to be artifact but could be a tiny subacute lacunar infarct. She was also found to be hyponatremic, BETY, and anemic. She was admitted for further work-up. ROS unobtainable secondary to underlying cognition. Of significance she was seen and evaluated in ED on 01/16 secondary to dizziness. She was discharged back to personal care. Allergies Allergy/AdvReac Type Severity Reaction Status Date / Time ampicillin Allergy Unknown ITCHING Verified 01/23/21 14:35 RASH cortisone Allergy Unknown DIZZINESS Verified 01/23/21 14:35 Home Medications Medication Instructions Recorded Confirmed Type acetaminophen 325 mg capsule 325 - 650 mg PO .EVERY 4-6HRS PRN 02/28/20 01/23/21 History MDD 3g atorvastatin 20 mg tablet 20 mg PO DAILY 02/28/20 01/23/21 History ferrous sulfate 325 mg (65 mg 325 mg PO BID 03/13/20 01/23/21 History iron) tablet glimepiride 2 mg tablet 2 mg PO DAILY tab 03/13/20 01/23/21 History lisinopril 10 mg tablet 10 mg PO QAM 03/13/20 01/23/21 History loteprednol etabonate 0.5 % eye 1 drp OPL 3XWK 03/13/20 01/23/21 History gel drops (Lotemax) memantine 7 mg capsule 7 mg PO QAM 03/13/20 01/23/21 History sprinkle,extended release 24hr metformin 500 mg tablet 500 mg PO BID 03/13/20 01/23/21 History nepafenac 0.3 % eye 1 drp OPR DAILY 03/13/20 01/23/21 History drops,suspension (Ilevro) pioglitazone 45 mg tablet 45 mg PO QAM 03/13/20 01/23/21 History prednisolone acetate 1 % eye 1 drp OPR DAILY ml 03/13/20 01/23/21 History drops,suspension sitagliptin 100 mg tablet (Januvia) 100 mg PO DAILY 03/13/20 01/23/21 History timolol 0.5 % eye drops 1 drp OPB DAILY 03/13/20 01/23/21 History vit C 250 mg-vit E 90 mg-zinc 40 1 tab PO BID 03/13/20 01/23/21 History mg-copper 1 [id number] capsule (PreserVision AREDS-2) cholecalciferol (vitamin D3) 50 50 mcg PO DAILY 05/16/20 01/23/21 History mcg (2,000 unit) capsule (Vitamin D3) glimepiride 1 mg tablet 1 mg PO DAILY 09/21/20 01/23/21 History ciprofloxacin HCl 0.3 % eye drops See Rx Instructions OPHTHALMIC 10/14/20 Rx (EYE) .COMPLEX #10 ml meclizine 12.5 mg tablet 12.5 mg PO Q8H PRN 01/16/21 01/23/21 History Past Med/Surg History Medical History Anemia Cerumen impaction CKD (chronic kidney disease) stage 3, GFR 30-59 ml/min Endothelial corneal dystrophy of right eye Excessive cerumen in right ear canal Hyperlipidemia Mixed conductive and sensorineural hearing loss of right ear with restricted hearing of left ear Otitis externa Sensorineural hearing loss of both ears Surgical History History of eye surgery endometrial layer replacement, left & right, 2019 & 2019. Family History Father Hearing loss Hypertension Heart disease Other No family history of adverse response to anesthesia No family history of bleeding disorder Social History Smoking Status: Never smoker Hx Alcohol Use: No Hx Substance Use: No Preferred Language: Togolese Communication Ability: Effective marital status: / Current Living Situation: Personal Care Facility current occupational status: retired Other Information That Helps Us Care for You: No Assistive Devices: None Review of Systems Review of Systems: Unobtainable due to cognitive status Physical Exam Physical Exam: Constitutional: Petite, elderly, female, alert and oriented to self only, vitals as above, NAD, sitting up in bed, pleasant, answers questions but not appropriate Head: Normocephalic, Atraumatic Eyes: PERRL, conjunctivae normal, anicteric sclerae ENMT: external ear and nose normal, oropharynx normal Neck: trachea midline, no thyromegaly normal visual inspection Respiratory: normal respiratory effort, lungs clear to auscultation, no wheeze, rales, rhonchi. Normal insp/exp effort, no accessory muscle use Cardiovascular: RRR, no murmur, no edema Vessels: no JVD or carotid bruit Chest: normal inspection of chest Abdomen: normal bowel sounds, soft, nontender, no hepatosplenomegaly Musculoskeletal: no cyanosis or clubbing, extremities motor strength 4/5, outdoor adventure leader strength reduced on the left. Range of motion not tested assessed on right upper extremity secondary to fracture Skin: no rashes, warm and dry normal turgor Neurologic: PERRL, EOMI, accommodation nl, no face palsy, no dysarthria CN's II-XI intact bilaterally and moves all extremities Psychiatric: A+Ox1, euthymic affect Lymphatic: no cervical or axillary lymphadenopathy : deferred Results & Data Results & Data ([facility]) Vital Signs (Past 12 Hours) Vital Signs Temp Pulse Resp BP Pulse Ox 01/23/21 16:43 72 24 106/65 95 01/23/21 15:00 72 24 106/65 01/23/21 14:30 70 17 131/81 01/23/21 14:00 72 19 132/101 H 01/23/21 13:30 70 17 116/65 01/23/21 13:01 72 15 111/60 01/23/21 12:39 36.8 C 72 18 135/66 95 01/23/21 12:30 74 17 135/66 94 Diagnostic Findings Chest X-Ray 01/23/21 12:07 XR chest 1V portable HISTORY: 85 years-old Female Stroke Like Symptoms acute strokelike symptoms COMPARISON: Chest radiograph 01/16/2021 and 11/06/2020 TECHNIQUE: Portable AP view of the chest FINDINGS: Cardiac silhouette is mildly enlarged. Dense mitral annular calcifications. Chronic interstitial coarsening without pneumothorax, pleural effusion, airspace consolidation or overt pulmonary edema. Ill-defined opacity of the right upper lung is likely secondary to summation density with overlying the right posterior sixth rib. Acute appearing mildly displaced fracture of the distal right clavicle is new from 01/16/2021. Chronic appearing fracture of the posterior right sixth rib. Degenerative changes of the shoulders and spine. Acute versus subacute nondisplaced fracture of the lateral left ninth rib. Chronic bilateral rib fractures. IMPRESSION: 1. Cardiomegaly with chronic interstitial coarsening. 2. Ill-defined opacity of the right upper lung suggests summation density. Subtle airspace disease or pulmonary nodule considered less likely. 3. Acute appearing mildly displaced fracture of the distal right clavicle is new from 01/16/2021. 4. Acute versus subacute slightly displaced fracture of the lateral left ninth rib. ACT 112: Negative or not required by law. The above report was generated using voice recognition software. It may contain grammatical, syntax or spelling errors. Electronically signed by: Rashaad Chowdhury M.D. 01/23/2021 12:[address] 01/23/21 12:07 CT head/brain wo con CLINICAL HISTORY: 85 years-old Female with Stroke Like Symptoms. Acute strok elike symptoms TECHNIQUE: Multiple axial CT images of the head were obtained without contrast. A dose lowering technique was utilized adhering to the principles of ALARA. CT DOSE: 729.78 mGycm COMPARISON: None. FINDINGS: No acute intracranial hemorrhage, midline shift, intracranial mass, territorial ischemia or abnormal extra-axial collection. Age-related involutional changes. White matter hypodensities suggestive of chronic microvascular ischemic disease. Cavum septum pellucidum and vergae. Dilation of the lateral and third ventricles redemonstrated. Transverse dimension of the lateral ventricles measures 5.6 cm. The calvarium is intact. Trace mastoid effusions. Paranasal sinuses are clear. Prior bilateral lens repair. IMPRESSION: 1. No acute intracranial abnormality. 2. Age-related involutional changes with chronic microvascular ischemic disease. 3. Dilation of the ventricular system is dating back to 05/16/2020 and likely on an ex vacuo basis. Normal pressure hydrocephalus is an additional differential consideration. ACT 112: Negative or not required by law. The above report was generated using voice recognition software. It may contain grammatical, syntax or spelling errors. Electronically signed by: Rashaad Chowdhury M.D. 01/23/2021 12:52 PM Head CTA 01/23/21 12:07 CT angio neck with con, CT angio head w con CLINICAL HISTORY: 85 years-old Female with Stroke Like Symptoms. Acute strokelike symptoms COMPARISON STUDY: Head CT of same day TECHNIQUE: Following the IV administration of 120 mL of Optiray, CT angiogram of the head and neck was performed from the aortic arch to the skull apex. Images are reviewed in the axial, sagittal, and coronal planes. 3-D MIPS images are created and assessed. IV contrast was administered without complication. All measurements were calculated based on NASCET criteria. A dose lowering technique was utilized adhering to the principles of ALARA. CT DOSE: 780.76 mGycm FINDINGS: Three-vessel morphology of the thoracic aortic arch. Motion degraded exam. Patency of the innominate and imaged subclavian arteries. The common carotid arteries are patent. Mild atherosclerotic plaque of the right carotid bulb and proximal right ICA results in less than 50% luminal narrowing. There is slightly diminished flow within the M2 and M3 branches on the right compared to the left. Moderate atherosclerotic plaque of the left carotid bulb and proximal left ICA results in approximately 75% luminal narrowing. Calcified plaque of the cavernous and supraclinoid segments of the internal carotid arteries. High-grade stenosis involves the proximal and mid aspects of the right middle cerebral artery on image 128. The left middle and bilateral anterior cerebral arteries are patent. Dominant right vertebral artery. The right vertebral artery is patent. 50% luminal narrowing involves the V2 segment left vertebral artery at the level of C3-C4 secondary to facet arthrosis and uncovertebral spurring of the cervical spine on image 208. Portions of the distal left vertebral artery suboptimally visualized secondary to motion artifact. The basilar artery is patent. origin of the right posterior cerebral artery. The bilateral posterior cerebral arteries are patent. Cerebral venous sinuses are patent. Age-related involutional changes with unchanged ventriculomegaly. 1.1 cm centrally calcified extra-axial focus adjacent to the superior right frontal lobe on image 254 may reflect a small meningioma. Pleural parenchymal scarring of the lung apices with nodular foci of the left lung apex measuring up to 7 mm. There is no pneumothorax. Unremarkable soft tissues. IMPRESSION: 1. Moderate atherosclerosis of the left carotid bulb results in 75% stenosis of the proximal cervical segment left ICA. 2. High-grade stenosis of the right M1 segment. 3. 50% luminal narrowing of the V2 segment left vertebral artery at the level of C3-C4 secondary to facet arthrosis and uncovertebral spurring. 4. Additional findings as above. ACT 112: Negative or not required by law. The above report was generated using voice recognition software. It may contain grammatical, syntax or spelling errors. Electronically signed by: Rashaad Chowdhury M.D. 01/23/2021 1:02 PM Neck CTA 01/23/21 12:07 CT angio neck with con, CT angio head w con CLINICAL HISTORY: 85 years-old Female with Stroke Like Symptoms. Acute strokelike symptoms COMPARISON STUDY: Head CT of same day TECHNIQUE: Following the IV administration of 120 mL of Optiray, CT angiogram of the head and neck was performed from the aortic arch to the skull apex. Images are reviewed in the axial, sagittal, and coronal planes. 3-D MIPS images are created and assessed. IV contrast was administered without complication. All measurements were calculated based on NASCET criteria. A dose lowering technique was utilized adhering to the principles of ALARA. CT DOSE: 780.76 mGycm FINDINGS: Three-vessel morphology of the thoracic aortic arch. Motion degraded exam. Patency of the innominate and imaged subclavian arteries. The common carotid arteries are patent. Mild atherosclerotic plaque of the right carotid bulb and proximal right ICA results in less than 50% luminal narrowing. There is slightly diminished flow within the M2 and M3 branches on the right compared to the left. Moderate atherosclerotic plaque of the left carotid bulb and proximal left ICA results in approximately 75% luminal narrowing. Calcified plaque of the cave rnous and supraclinoid segments of the internal carotid arteries. High-grade stenosis involves the proximal and mid aspects of the right middle cerebral artery on image 128. The left middle and bilateral anterior cerebral arteries are patent. Dominant right vertebral artery. The right vertebral artery is patent. 50% luminal narrowing involves the V2 segment left vertebral artery at the level of C3-C4 secondary to facet arthrosis and uncovertebral spurring of the cervical spine on image 208. Portions of the distal left vertebral artery suboptimally visualized secondary to motion artifact. The basilar artery is patent. origin of the right posterior cerebral artery. The bilateral posterior cerebral arteries are patent. Cerebral venous sinuses are patent. Age-related involutional changes with unchanged ventriculomegaly. 1.1 cm centrally calcified extra-axial focus adjacent to the superior right frontal lobe on image 254 may reflect a small meningioma. Pleural parenchymal scarring of the lung apices with nodular foci of the left lung apex measuring up to 7 mm. There is no pneumothorax. Unremarkable soft tissues. IMPRESSION: 1. Moderate atherosclerosis of the left carotid bulb results in 75% stenosis of the proximal cervical segment left ICA. 2. High-grade stenosis of the right M1 segment. 3. 50% luminal narrowing of the V2 segment left vertebral artery at the level of C3-C4 secondary to facet arthrosis and uncovertebral spurring. 4. Additional findings as above. ACT 112: Negative or not required by law. The above report was generated using voice recognition software. It may contain grammatical, syntax or spelling errors. Electronically signed by: Rashaad Chowdhury M.D. 01/23/2021 1:02 PM Medications Administered Medication List Lorazepam (Ativan) 0.25 mg in 0.5 mls @ 0.5 mls/min IV Q4H PRN PRN Reason: Agitation Stop: 02/22/21 15:55 Last Admin: 01/23/21 16:15 Dose: 0.5 mls/min Documented by: [id number] Discontinued Medications Aspirin (Aspirin Chew 324 Mg) 324 mg PO NOW STA Stop: 01/23/21 14:10 Last Admin: 01/23/21 14:20 Dose: 324 mg Documented by: [id number] Sodium Chloride (Nss) 500 mls @ 999 mls/hr IV .Q31M ONE Stop: 01/23/21 14:12 Last Infusion: 01/23/21 14:33 Dose: 0 mls/hr Documented by: [id number] Admin: 01/23/21 13:59 Dose: 999 mls/hr Documented by: [id number] Lorazepam (Ativan) 0.25 mg in 0.5 mls @ 0.5 mls/min IV NOW STA Stop: 01/23/21 15:57 Last Admin: 01/23/21 16:05 Dose: 0.5 mls/min Documented by: [id number] Ioversol (Optiray 320 125ml) 120 ml IV ONCE ONE Stop: 01/23/21 12:29 Last Admin: 01/23/21 12:28 Dose: 120 ml Documented by: [id number] ECG Rate (beats per minute): 75 Rhythm: normal sinus Additional Comments: QTC 453, compared to January 16, 2021 COVID-19 Results Results COVID-19 Adm Lab Results: RBC 2.97 M/uL (4.2-5.4) L 01/23/21 WBC 8.09 K/uL (4.8-10.8) 01/23/21 Hgb 9.5 g/dL (12.0-16.0) L 01/23/21 Hct 29.0 % (37-47) L 01/23/21 Plt Count 360 K/uL (130-400) 01/23/21 Neutrophils (%) (Auto) 68.8 % 01/23/21 Lymphocytes (%) (Auto) 19.5 % 01/23/21 Monocytes # (Auto) 0.63 K/uL (0.11-0.59) H 01/23/21 Eosinophils # (Auto) 0.26 K/uL (0-0.5) 01/23/21 Immature Granulocyte % (Auto) 0.1 % 01/23/21 Neutrophils # (Auto) 5.56 K/uL (1.4-6.5) 01/23/21 Lymphocytes # (Auto) 1.58 K/uL (1.2-3.4) 01/23/21 Monocytes # (Auto) 0.63 K/uL (0.11-0.59) H 01/23/21 Eosinophils # (Auto) 0.26 K/uL (0-0.5) 01/23/21 Basophils # (Auto) 0.05 K/uL (0-0.2) 01/23/21 Immature Granulocyte # (Auto) 0.01 K/uL (0.00-0.02) 01/23/21 Na 130 mmol/L (136-145) L 01/23/21 K 4.3 mmol/L (3.5-5.1) 01/23/21 Cl 99 mmol/L (98-107) 01/23/21 CO2 27 mmol/L (21-32) 01/23/21 Anion Gap 4.0 (3-11) 01/23/21 BUN 46 mg/dl (7-18) H 01/23/21 Creatinine 1.27 mg/dl (0.6-1.2) H 01/23/21 BUN/Creatinine Ratio 36.3 (10-20) H 01/23/21 Glucose Level 161 mg/dl (70-99) H 01/23/21 Ca 8.4 mg/dl (8.5-10.1) L 01/23/21 Total Bilirubin 0.2 mg/dl (0.2-1) 01/23/21 AST/SGOT 13 U/L (15-37) L 01/23/21 ALT/SGPT 11 U/L (12-78) L 01/23/21 Alkaline Phosphatase 115 U/L (45-117) 01/23/21 Total Protein 6.5 gm/dl (6.4-8.2) 01/23/21 Albumin 3.2 gm/dl (3.4-5.0) L 01/23/21 Globulin 3.3 gm/dl (2.5-4.0) 01/23/21 Albumin/Globulin Ratio 1.0 (0.9-2) 01/23/21 Troponin I < 0.015 ng/ml (0-0.045) 01/23/21 PTT 24.2 Seconds (21.0-31.0) 01/23/21 INR 1.0 (0.9-1.1) 01/23/21 COVID-19 PCR NEGATIVE (Negative) 01/23/21 Chest X-Ray 01/23/21 Code Status & VTE Plan VTE Prophylaxis Plan VTE Prophylaxis will be ordered: Yes Supervising Physician Co-Signing Physician Notes I have seen and examined the patient and have discussed the case with the provider above. I agree with the assessment and plan as stated. The patient is an 85-year-old female presenting from a personal retirement with acute left-sided weakness. She was hypoglycemic in route and given D10 dementia complicates the history. Agree with investigating other underlying factors, however, despite MRI findings, the patient has no significant residual deficits that are noted. She does have some baseline arthritis with chronic degenerative changes to hands and as a result of this has some fine motor issues. PT/OT to see her. Son reports she has been guarded of her shoulder and rib in the past couple of weeks. This may correspond to mildly displaced fracture of the distal right clavicle and/or slightly displaced fracture of the lateral ninth rib on the left. History is unclear. Lab work reveals some anemia, agree with work-up in a.m. Sodium is low at 130 with slightly elevated creatinine 1.27, suggestive of dehydration. Urine pending. Neurologically there are no significant gross focal deficits, however, patient is clearly disoriented with memory issues. She cannot extend her left arm fully, appearing guarded of her chest/shoulder on the left. Otherwise physical exam as above. I discussed the case with the son who was at bedside and am in agreement with the plan above. Theo, DO
--- NOTE | 2021-01-23 17:07 | Magnetic Resonance Report ---
MR brain wo con HISTORY: 85 years-old Female L sided weaknesss acute strokelike symptoms COMPARISON: CT head, CTA head and neck of same day TECHNIQUE: Multiplanar multisequence MRI of the brain was obtained without the use of IV contrast. FINDINGS: No restricted diffusion to suggest acute or subacute territorial infarct. There is a 4 mm focus of sl ightly increased diffusion-weighted signal within the right external capsule distribution on image 12 series 7 which demonstrates intermediate signal on ADC map and T2/FLAIR images. Motion degraded exam . Age-related involutional changes with unchanged ventriculomegaly. Cavum septum pellucidum and verga e. Moderate to extensive confluent T2/FLAIR hyperintensities throughout the white matter. No acute in tracranial hemorrhage, midline shift or abnormal extra-axial collection. Cerebral venous sinuses and major arterial flow voids are patent. Moderate left mastoid effusion. Mil d mucosal thickening of the paranasal sinuses. Skull and soft tissues are unremarkable. Prior bilater al lens repair. IMPRESSION: 1. 4 mm focus of slightly increased diffusion-weighted signal involving the right external capsule is favored to be artifact. A tiny subacute lacunar infarct could appear similarly. 2. Age-related involutional changes with unchanged ventriculomegaly. 3. Moderate to extensive chronic microvascular ischemic disease. 4. Left mastoid effusion. ACT 112: Negative or not required by law. The above report was generated using voice recognition software. It may contain grammatical, syntax o r spelling errors. Electronically signed by: Rashaad Chowdhury M.D. 01/23/2021 5:06 PM
[2021-01-23] MEDS ORDERED: GLUCOSE 40% GEL 15 GM TUBE PO PRN (17:10)
[2021-01-23] MEDS ORDERED: GLUCAGON FOR INJ 1 MG VIAL SQ PRN (17:10)
[2021-01-23] MEDS ORDERED: GLUCOSE 10 TABS/TUBE PO PRN (17:10)
[2021-01-23] MEDS ORDERED: DEXTROSE 50% 50 ML SYRINGE IV PRN (17:10)
[2021-01-23] MEDS ORDERED: CARBOHYDRATES FOR HYPOGLYCEMIA PO PRN (17:10)
[2021-01-23] MEDS ORDERED: PHARMACIST DISCHARGE MED REC CONSULT PRN (17:10)
[2021-01-23] MEDS ORDERED: SODIUM CHLORIDE 0.9% 1000ML 1,000 ML IV SCH (17:30)
[2021-01-23] MEDS: INSULIN ASPART 100 UNITS/ML 3 ML PEN SC SCH ×2 (18:19→21:13)
[2021-01-23] MEDS ORDERED: INSULIN GLARGINE SOLOSTAR 100 UNITS/ML 3 ML PEN SC SCH (21:00)
[2021-01-23] MEDS: LIDOCAINE 5% 1 PATCH TD SCH (21:05)
[2021-01-23] MEDS: ACETAMINOPHEN 500 MG TAB PO SCH (21:06)
[2021-01-23] MEDS: FERROUS SULFATE 325 MG TAB PO SCH (21:08)
[2021-01-24 06:00] LABS: Basophils # (auto) 0.05 K/uL (0-0.2); Basophils % (auto) 0.7 %; Eosinophils # (auto) 0.34 K/uL (0-0.5); Eosinophils % (auto) 4.5 %; Hematocrit (blood only) 27.1 % (37-47); Immature Granulocytes # (auto) 0.01 K/uL (0.00-0.02); Immature Granulocytes % (auto) 0.1 %; Lymphocytes # (auto) 1.35 K/uL (1.2-3.4); Lymphocytes % (auto) 17.8 %; Mean Corpuscular Hemoglobin 32.1 pg (25-34); Mean Corpuscular Hgb Conc 33.2 g/dL (32-36); Mean Corpuscular Volume 96.8 fL (80-100); Monocytes # (auto) 0.68 K/uL (0.11-0.59); Neutrophils # (auto) 5.15 K/uL (1.4-6.5); Neutrophils % (auto) 67.9 %; Platelet Count 286 K/uL (130-400); RDW Coefficient of Variation 12.8 % (11.5-14.5); RDW Standard Deviation 45.9 fL (36.4-46.3); White Blood Count 7.58 K/uL (4.8-10.8)
[2021-01-24 06:46] LABS: BUN Creatinine Ratio 36.1 (10-20); Calcium 8.8 mg/dl (8.5-10.1); Creatinine Clr Calc Pharmacy 26.4 ml/min; Est GFR (African American) 53.5 ml/min; Est GFR (Non-African American) 46.1 ml/min; Ferritin 166.5 ng/ml (8-388); Potassium 4.7 mmol/L (3.5-5.1)
[2021-01-24 06:58] LABS: Folate (Folic Acid) 15.9 ng/ml (>5.38)
[2021-01-24] MEDS: INSULIN ASPART 100 UNITS/ML 3 ML PEN SC SCH (07:58)
[2021-01-24] MEDS: ASPIRIN 81 MG ECTAB PO SCH (08:00)
[2021-01-24] MEDS: CHOLECALCIFEROL 1,000 UNITS 25 MCG TAB PO SCH (08:00)
[2021-01-24] MEDS: FERROUS SULFATE 325 MG TAB PO SCH (08:00)
[2021-01-24] MEDS: ATORVASTATIN 20 MG TAB PO SCH (08:00)
[2021-01-24] MEDS: CEROVITE ADV FORMULA TAB PO SCH (08:00)
[2021-01-24] MEDS: ACETAMINOPHEN 500 MG TAB PO SCH ×4 (08:00→23:18)
[2021-01-24] MEDS: LIDOCAINE 5% 1 PATCH TD SCH (08:01)
[2021-01-24] MEDS: prednisoLONE acetate 1% OP SUSP 5 ML BTL OPR SCH (08:02)
[2021-01-24] MEDS: TIMOLOL MALEATE 0.5% OP SOLN 5 ML BTL OPB SCH (08:02)
--- NOTE | 2021-01-24 08:32 | Orthopedic Consultation ---
Date of Consultation January 24, 2021 Assessment & Plan (1) Closed right clavicular fracture: Discussed treatment with nursing. We will continue to try to apply the sling to the right upper extremity. Hopefully the patient will be able to tolerate it and will not keep removing it. I will order dedicated right clavicle x-rays to have a baseline. Given the patient's dementia and health history, she may not be a candidate for ORIF if the fracture does displace or the fracture does not progress to healing. Patient may follow-up in the [facility] [place] office in approximately 2 to 3 weeks for repeat x-rays of her clavicle. Thank you for the consultation. (2) Dementia: History of Present Illness Reason for Consultation: Right clavicle fracture post fall Attending Physician: Kayla Venegas, History of Present Illness Patient has dementia so most all history was received from the chart. Patient was unable to give history of any shoulder injury. The patient was admitted yesterday for strokelike symptoms. Her son has given a history of multiple falls recently. She was in the emergency room approximate 1 week ago with a chest x-ray that did not note a right-sided clavicle fracture. However, upon admission yesterday another chest x-ray was performed and a mildly displaced right clavicle fracture was noted. An order was given for a sling for the right upper extremity. However, the patient's nurse has stated has been difficult to keep the sling on the patient. The patient is unable to express if there is any discomfort with palpation of the right clavicle. Allergies Allergy/AdvReac Type Severity Reaction Status Date / Time ampicillin Allergy Unknown ITCHING Verified 01/23/21 14:35 RASH cortisone Allergy Unknown DIZZINESS Verified 01/23/21 14:35 Home Medications Medication Instructions Recorded Confirmed Type acetaminophen 325 mg capsule 325 - 650 mg PO .EVERY 4-6HRS PRN 02/28/20 01/23/21 History MDD 3g atorvastatin 20 mg tablet 20 mg PO DAILY 02/28/20 01/23/21 History ferrous sulfate 325 mg (65 mg 325 mg PO BID 03/13/20 01/23/21 History iron) tablet glimepiride 2 mg tablet 2 mg PO DAILY tab 03/13/20 01/23/21 History lisinopril 10 mg tablet 10 mg PO QAM 03/13/20 01/23/21 History loteprednol etabonate 0.5 % eye 1 drp OPL [id number] 03/13/20 01/23/21 History gel drops (Lotemax) memantine 7 mg capsule 7 mg PO QAM 03/13/20 01/23/21 History sprinkle,extended release 24hr metformin 500 mg tablet 500 mg PO BID 03/13/20 01/23/21 History nepafenac 0.3 % eye 1 drp OPR DAILY 03/13/20 01/23/21 History drops,suspension (Ilevro) pioglitazone 45 mg tablet 45 mg PO QAM 03/13/20 01/23/21 History prednisolone acetate 1 % eye 1 drp OPR DAILY ml 03/13/20 01/23/21 History drops,suspension sitagliptin 100 mg tablet (Januvia) 100 mg PO DAILY 03/13/20 01/23/21 History timolol 0.5 % eye drops 1 drp OPB DAILY 03/13/20 01/23/21 History vit C 250 mg-vit E 90 mg-zinc 40 1 tab PO BID 03/13/20 01/23/21 History mg-copper 1 [id number] capsule (PreserVision AREDS-2) cholecalciferol (vitamin D3) 50 50 mcg PO DAILY 05/16/20 01/23/21 History mcg (2,000 unit) capsule (Vitamin D3) glimepiride 1 mg tablet 1 mg PO DAILY 09/21/20 01/23/21 History ciprofloxacin HCl 0.3 % eye drops See Rx Instructions OPHTHALMIC 10/14/20 01/23/21 Rx (EYE) .COMPLEX #10 ml meclizine 12.5 mg tablet 12.5 mg PO Q8H PRN 01/16/21 01/23/21 History Patient History Medical History Anemia Cerumen impaction CKD (chronic kidney disease) stage 3, GFR 30-59 ml/min Endothelial corneal dystrophy of right eye Excessive cerumen in right ear canal Hyperlipidemia Mixed conductive and sensorineural hearing loss of right ear with restricted hearing of left ear Otitis externa Sensorineural hearing loss of both ears Surgical History History of eye surgery endometrial layer replacement, left & right, 2019 & 2020. Family History Father Hearing loss Hypertension Heart disease Other No family history of adverse response to anesthesia No family history of bleeding disorder Social History Smoking Status: Never smoker Hx Alcohol Use: No Hx Substance Use: No Preferred Language: Moroccan Communication Ability: Effective marital status: / Current Living Situation: Personal Care Facility current occupational status: retired Other Information That Helps Us Care for You: No Assistive Devices: Glasses Physical Exam Constitutional: + thin; no acute distress Musculoskeletal: Shoulder: shoulder normal to inspection, no deformity, no skin erythema, no ecchymosis and no joint line tenderness (No obvious guarding or tenderness noted with palpation of the right clavicl) Skin: no rashes, warm and dry Trauma: no evidence of skin trauma Psychiatric: Orientation: alert and cooperative; + not oriented to person and + not oriented to place Cognition: + recent memory not intact Results & Data ([facility]) Vital Signs (Past 12 Hours) Vital Signs Temp Pulse Pulse Resp BP Pulse Ox 01/24/21 07:18 36.6 C 18 94 01/24/21 04:17 36.6 C 69 17 115/64 96 01/24/21 00:00 69 01/23/21 23:36 36.6 C 74 17 112/62 98 Diagnostic Findings Chest x-ray reviewed. There appears to be a mildly displaced right distal clavicle fracture. There is not appear to be any significant shortening.
[2021-01-24] MEDS ORDERED: TIMOLOL MALEATE 0.5% OP SOLN 5 ML BTL OPB SCH (09:00)
--- NOTE | 2021-01-24 09:10 | XRay Report ---
XR clavicle 2 view RT CLINICAL HISTORY: Right clavicle fracture on chest x-ray COMPARISON STUDY: Chest 01/23/2021. FINDINGS: There is an acute mild displaced oblique fracture within the distal right clavicle. This de monstrates up to 6 mm of superior displacement. There are old, healed right-sided rib fractures. Ther e is mild soft tissue swelling within the right shoulder. IMPRESSION: Acute distal right clavicle fracture. ACT 112: Negative or not required by law. Electronically signed by: Hardeep Gonzalez M.D. 01/24/2021 9:08 AM
--- NOTE | 2021-01-24 09:32 | Electrocardiogram Report ---
Test Reason : Blood Pressure : / mmHG Vent. Rate : 075 BPM Atrial Rate : 075 BPM P-R Int : 164 ms QRS Dur : 084 ms QT Int : 406 ms P-R-T Axes : 041 -42 052 degrees QTc Int : 453 ms Poor data quality, interpretation may be adversely affected Normal sinus rhythm Left anterior fascicular block Abnormal ECG When compared with ECG of 16-JAN-2021 18:08, No significant change was found Confirmed by Esteban Zimmer ([id number]) on 01/24/2021 9:31:42 AM Referred By: REFERRED SELF Confirmed By:Esteban Zimmer
[2021-01-24 10:47] LABS: Appearance Urine Clear (Clear); Bacteria Urine Automated Negative (Negative); Bilirubin Urine Negative (Negative); Blood Urine Negative (Negative); Cast Urine Automated 0 /lpf (0-5); Color Urine Yellow; Epithelial Cell Urine Auto 0-5 /lpf (0-5); Glucose Urine UA Negative (Negative); Ketones Urine Negative (Negative); Leukocyte Esterase Urine Negative (Negative); Nitrite Urine Negative (Negative); Protein Urine Trace (Negative); RBC Urine Automated 0-4 /hpf (0-4); Urobilinogen Urine Negative (Negative); pH Urine 5.5 (4.5-7.5)
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
[2021-01-24 16:37] LABS: Estimated Average Glucose 151 mg/dl; Hemoglobin A1C 6.9 % (4.5-5.6)
[2021-01-24] MEDS ORDERED: traMADol HCL 50 MG TABLET PO PRN (18:40)
[2021-01-25 07:48] LABS: Basophils # (auto) 0.06 K/uL (0-0.2); Basophils % (auto) 1.1 %; Eosinophils # (auto) 0.51 K/uL (0-0.5); Eosinophils % (auto) 9.1 %; Hematocrit (blood only) 30.2 % (37-47); Hemoglobin 9.8 g/dL (12.0-16.0); Immature Granulocytes # (auto) 0.01 K/uL (0.00-0.02); Immature Granulocytes % (auto) 0.2 %; Lymphocytes # (auto) 1.12 K/uL (1.2-3.4); Mean Corpuscular Hemoglobin 31.8 pg (25-34); Mean Corpuscular Hgb Conc 32.5 g/dL (32-36); Mean Corpuscular Volume 98.1 fL (80-100); Mean Platelet Volume 8.3 fL (7.4-10.4); Monocytes # (auto) 0.34 K/uL (0.11-0.59); Monocytes % (auto) 6.1 %; Neutrophils # (auto) 3.56 K/uL (1.4-6.5); Neutrophils % (auto) 63.5 %; Platelet Count 373 K/uL (130-400); RDW Coefficient of Variation 12.6 % (11.5-14.5); Red Blood Count 3.08 M/uL (4.2-5.4)
[2021-01-25] MEDS: MEMANTINE HCL 5 MG TAB PO SCH (08:14)
[2021-01-25] MEDS: ACETAMINOPHEN 500 MG TAB PO SCH ×3 (08:14→22:42)
[2021-01-25] MEDS: prednisoLONE acetate 1% OP SUSP 5 ML BTL OPR SCH (08:15)
[2021-01-25] MEDS: CHOLECALCIFEROL 1,000 UNITS 25 MCG TAB PO SCH (08:15)
[2021-01-25] MEDS: ATORVASTATIN 20 MG TAB PO SCH (08:15)
[2021-01-25] MEDS: ASPIRIN 81 MG ECTAB PO SCH (08:15)
[2021-01-25] MEDS: CEROVITE ADV FORMULA TAB PO SCH (08:15)
[2021-01-25] MEDS: TIMOLOL MALEATE 0.5% OP SOLN 5 ML BTL OPB SCH (08:16)
[2021-01-25 08:19] LABS: BUN Creatinine Ratio 28.5 (10-20); Calcium 9.4 mg/dl (8.5-10.1); Creatinine Clr Calc Pharmacy 31.6 ml/min; Est GFR (African American) 66.6 ml/min; Est GFR (Non-African American) 57.5 ml/min; Potassium 4.3 mmol/L (3.5-5.1)
--- NOTE | 2021-01-25 16:22 | Neurology Consultation ---
Date of Consultation January 25, 2021 Assessment & Plan (1) Hypoglycemia: An 85-year-old woman with multiple medical comorbidities including peripheral vascular disease, diabetes, and dementia admitted with an episode of weakness in the setting of hypoglycemia. Blood glucoses have been running low since admission which is likely suspected from poor p.o. intake as well as iatrogenic from her diabetes medications. Currently patient appears to be at baseline with known dementia without any focal neurological deficits. Imaging was reviewed and my impression is that the MRI of the brain does not show any evidence of acute infarct. Subtle diffusion restriction noted in the right basal ganglia without a clear ADC correlate is likely T2 shine through. Pertinent findings seen on MRI of the brain is ventriculomegaly which could be suggestive of normal pressure hydrocephalus although given the degree of dementia at this point further diagnostic testing or work-up for this is likely not to jacquard loom card changer. I did not evaluate her gait during this admission. In regards to the CTA head and neck the pertinent findings was that there was a left carotid stenosis as well as right MCA stenosis intracranially. I do believe these are likely incidental. Strongly recommend to avoid hypotension in the long-term. [place] blood pressures will be in the systolic blood pressure 120s to 130s millimeters mercury. Recommend continuing aspirin 81 mg daily and home Lipitor upon discharge. Patient's plan is to be discharged to snf facility. She can therefore follow-up with the PCP there or her family medicine provider for any additional diabetic management needs. Please contact me with any additional questions or concerns. This consultation note was discussed with attending provider Dr. Kayla Venegas. (2) Peripheral vascular disease: History of Present Illness Attending Physician: Kayla Venegas, History of Present Illness An 85-year-old woman with history of dementia, type 2 diabetes, hyperlipidemia, and hypertension admitted on December 23 for left-sided weakness and a fall. Patient is currently in a sling for her right arm. She is sitting upright in the chair napping. She currently is without complaint and denies any focal weakness. She states she does not know why she is here or what hospital this is. She believes she is in law came in hospital. History is otherwise limited due to dementia although she is following commands. She was a stroke alert upon arrival and telemedicine consultation ensued. She underwent CT head and neck imaging which showed right M1 stenosis as well as carotid disease. There is no occlusion. She was started on antiplatelet agents. She was not given IV TPA. Of note the patient was noted to be hypoglycemic by EMS and given glucose. Patient has been hypoglycemic during his hospital admission per discussion with Dr. Venegas. Discharge planning is ensuing for SNF. Neurology was consulted for evaluation of possible TIA. Allergies Allergy/AdvReac Type Severity Reaction Status Date / Time ampicillin Allergy Unknown ITCHING Verified 01/23/21 14:35 RASH cortisone Allergy Unknown DIZZINESS Verified 01/23/21 14:35 Home Medications Medication Instructions Recorded Confirmed Type acetaminophen 325 mg capsule 325 - 650 mg PO .EVERY 4-6HRS PRN 02/28/20 01/23/21 History MDD 3g atorvastatin 20 mg tablet 20 mg PO DAILY 02/28/20 01/23/21 History ferrous sulfate 325 mg (65 mg 325 mg PO BID 03/13/20 01/23/21 History iron) tablet glimepiride 2 mg tablet 2 mg PO DAILY tab 03/13/20 01/23/21 History lisinopril 10 mg tablet 10 mg PO QAM 03/13/20 01/23/21 History loteprednol etabonate 0.5 % eye 1 drp OPL [id number] 03/13/20 01/23/21 History gel drops (Lotemax) memantine 7 mg capsule 7 mg PO QAM 03/13/20 01/23/21 History sprinkle,extended release 24hr metformin 500 mg tablet 500 mg PO BID 03/13/20 01/23/21 History nepafenac 0.3 % eye 1 drp OPR DAILY 03/13/20 01/23/21 History drops,suspension (Ilevro) pioglitazone 45 mg tablet 45 mg PO QAM 03/13/20 01/23/21 History prednisolone acetate 1 % eye 1 drp OPR DAILY ml 03/13/20 01/23/21 History drops,suspension sitagliptin 100 mg tablet (Januvia) 100 mg PO DAILY 03/13/20 01/23/21 History timolol 0.5 % eye drops 1 drp OPB DAILY 03/13/20 01/23/21 History vit C 250 mg-vit E 90 mg-zinc 40 1 tab PO BID 03/13/20 01/23/21 History mg-copper 1 [id number] capsule (PreserVision AREDS-2) cholecalciferol (vitamin D3) 50 50 mcg PO DAILY 05/16/20 01/23/21 History mcg (2,000 unit) capsule (Vitamin D3) glimepiride 1 mg tablet 1 mg PO DAILY 09/21/20 01/23/21 History ciprofloxacin HCl 0.3 % eye drops See Rx Instructions OPHTHALMIC 10/14/20 01/23/21 Rx (EYE) .COMPLEX #10 ml meclizine 12.5 mg tablet 12.5 mg PO Q8H PRN 01/16/21 01/23/21 History Patient History Medical History Anemia Cerumen impaction CKD (chronic kidney disease) stage 3, GFR 30-59 ml/min Endothelial corneal dystrophy of right eye Excessive cerumen in right ear canal Hyperlipidemia Mixed conductive and sensorineural hearing loss of right ear with restricted hearing of left ear Otitis externa Sensorineural hearing loss of both ears Surgical History History of eye surgery endometrial layer replacement, left & right, 2019 & 2019. Family History Father Hearing loss Hypertension Heart disease Other No family history of adverse response to anesthesia No family history of bleeding disorder Social History Smoking Status: Never smoker Hx Alcohol Use: No Hx Substance Use: No Preferred Language: Faroese Communication Ability: Impaired marital status: / Current Living Situation: Personal Care Facility current occupational status: retired Other Information That Helps Us Care for You: No Assistive Devices: Glasses and Walker Review of Systems Review of Systems: A 12 point review of systems was conducted and negative except as noted above in the HPI. Physical Exam Physical Exam: Patient is awake alert and sitting upright in a chair. Her right arm is in a sling. She appears stated age. Thin appearing woman. She appears in no distress. Eyes are midline. Normal conjunctiva face is symmetric head is normocephalic and atraumatic no skin rashes noted. Cardiac pulses are normal. Respiratory rate is nonlabored. Abdomen is distended. She has a flat affect. She is disoriented to place and time. Disoriented to the year. Has difficulty naming common objects such as a straw and a cough. She is oriented to her age. She does follow simple commands her extraocular muscles are intact her pupils are symmetric. Her face is symmetric. Her tongue is midline. She has no obvious drift in the left upper extremity. The right arm is in a sling. Muscle strength testing reveals symmetric in the lower extremities. Right arm is limited due to the sling. No ankle clonus Nate sign is negative sensation is intact to light touch. Gait evaluation deferred. Results & Data ([facility]) Vital Signs (Past 12 Hours) Vital Signs Temp Pulse Pulse Resp BP BP Pulse Ox 01/25/21 15:39 36.9 C 75 16 158/92 H 94 01/25/21 11:41 36.7 C 67 20 135/75 94 01/25/21 08:00 70 01/25/21 07:13 36.9 C 70 18 145/38 H 93 Laboratory Results Urinalysis was negative. Diagnostic Findings MRI of the brain without contrast: 1. 4 mm focus of slightly increased diffusion-weighted signal involving the right external capsule is favored to be artifact. A tiny subacute lacunar infarct could appear similarly. 2. Age- related involutional changes with unchanged ventriculomegaly. 3. Moderate to extensive chronic microvascular ischemic disease. 4. Left mastoid effusion. CTA of the head and neck:1. Moderate atherosclerosis of the left carotid bulb results in 75% stenosis of the proximal cervical segment left ICA. 2. High- grade stenosis of the right M1 segment. 3. 50% luminal narrowing of the V2 segment left vertebral artery at the level of C3-C4 secondary to facet arthrosis and uncovertebral spurrin Transthoracic echocardiogram: Normal ejection fraction. No cardiac source of embolism. No shunt.
--- NOTE | 2021-01-25 17:25 | Hospitalist Progress Note ---
Date of Service January 25, 2021 Assessment & Plan (1) Stroke-like symptoms: Plan: Left-sided weakness reported on arrival stroke alert called -no TPA recommended multiple areas of high grade stenosis on cerebral vascular imaging with questionable subacute infarct on MRI vs artifact. Clinically she is well today and exhibiting no new neurologic deficits. She is at baseline mental status and functioning, but per therapy SNF for rehab is recommended, which is the plan per family Echo reviewed, normal sinus rhythm on telemetry overnight. ASA 324mg load given in ER and she continues on 81mg daily. Continues on Atorvastatin 20mg daily Suspect weakness moreso related to a recent fall resulting in R distal clavicle fracture vs acute hypoglycemia as EMS reported low blood sugar on arrival. (2) Arterial stenosis: Plan: cerebrovascular stenosis noted with carotid disease present. Cont medical therapy with ASA and statin pending further recommendations from Neurology. (3) Acute hyponatremia: Plan: Resolved into normal range. Cont to encourage good oral intake. (4) Clavicle fracture: Plan: Slightly displaced right distal clavicular fracture likely related to recent fall at [facility] 1-2 weeks ago (reported by sons). Sling with conservative management per Ortho given comorbidities. Cont pain control wtih scheduled Tylenol, however, not convinced this is enough for her discomfort. Will increase to 1000mg q8h punctuated by Tramadol as needed for more severe pain. Lidocaine patch. (5) Hypoglycemia: Plan: Diabetic reported to be on glimepiride, metformin, actos and januvia at home. Hypoglycemic prior to arrival to ED and also hypoglycemic this morning. All insulin has been held at this point and will simply monitor blood sugars, correcting as needed. Encourage PO intake. A1C pending. (6) Closed rib fracture: Plan: supportive care, encourage incentive spirometry and OOB with assistance as often as possible. (7) Anemia: Plan: No iron deficiency present. Stop iron supplementation as this can result in constipation. Likely multifactorial, possibly related to recent phlebotomy, or dilution from IVF. H/H today is 9.0/27, which is down from 11.3/34 on 01/16/21. No evidence of blood loss. Repeat CBC in am. (8) Acute renal insufficiency: (9) CKD (chronic kidney disease) stage 3, GFR 30-59 ml/min: Plan: Resolved to baseline after IVF. (10) Dementia: Plan: Some combativeness today on exam. Appears to be at her baseline mental status. Cont Namenda per home regimen. Reorient as needed. (11) Diabetes: Plan: A1C pending, hold all insulin per plan above. (12) Hypertension: Plan: lisinopril on hold in setting of permissive hypertension (13) DVT prophylaxis: Plan: SCDs--hold chemoprophylaxis in setting of decreasing H/H DNR/DNI Dispo rehab when medically stable. Kayla Venegas DO [place] Hospitalist Admission and Anticipated Discharge Date Admission Date: January 23, 2021 Subjective 85 yo F with dementia who presented from a [facility] after a fall and concern for left-sided weakness, possible TIA. Denies any pain or other issues today Doing well overall-eating breakfast. Review of Systems Review of Systems: All systems were reviewed and negative except as indicated in HPI above. Physical Exam Physical Exam: CONSTITUTIONAL: WNWD, vitals as above, generally well- appearing EYES: pupils are round and equal bilaterally, normal conjunctivae, no scleral icterus ENT: external ear and nose normal, MMM NECK: trachea midline RESPIRATORY: clear to auscultation bilaterally, no crackles, rales or wheezes, normal respiratory effort CARDIOVASCULAR: regular rate and rhythm, S1 and 2 heard without murmurs, gallops or rubs, no JVD, no peripheral edema CHEST: inspection of chest was normal, right arm with restricted ROM GASTROINTESTINAL: normal bowel sounds, soft, nontender, no hepatomegaly, no guarding MUSCULOSKELETAL: strength 5/5 throughout (except right arm restricted 2/2 sling, right hand hot oiler intact), no chest wall TTP. SKIN: warm and dry NEUROLOGIC: No facial palsy, no dysarthria. CN 2-12 grossly intact, no sensory deficit, normal cognition, normal speech, no tremor PSYCHIATRIC: alert, at baseline mental status, slightly combative. Results & Data Results & Data ([facility]) Vital Signs (Past 12 Hours) Vital Signs Temp Pulse Pulse Resp BP BP Pulse Ox 01/25/21 15:39 36.9 C 75 16 158/92 H 94 01/25/21 11:41 36.7 C 67 20 135/75 94 01/25/21 08:00 70 01/25/21 07:13 36.9 C 70 18 145/38 H 93 Laboratory Results Short CBC 01/25/21 Range/Units 07:14 WBC 5.60 (4.8-10.8) K/uL Hgb 9.8 L (12.0-16.0) g/dL Hct 30.2 L (37-47) % Plt Count 373 (130-400) K/uL [facility] 01/25/21 07:14 Sodium 138 Potassium 4.3 Chloride 107 Carbon Dioxide 27 BUN 26 H Creatinine 0.90 Glucose 99 Calcium 9.4 Medications Administered Current Inpatient Medications Acetaminophen (Acetaminophen 500 Mg Tab) 1,000 mg PO Q8H IMK Stop: 02/23/21 22:59 Last Admin: 01/25/21 14:49 Dose: 1,000 mg Documented by: Aspirin (Aspirin 81 Mg Ectab) 81 mg PO QAM MIK Stop: 02/23/21 08:59 Last Admin: 01/25/21 08:15 Dose: 81 mg Documented by: Atorvastatin Calcium (Atorvastatin 20 Mg Tab) 20 mg PO DAILY MIK Stop: 02/23/21 08:59 Last Admin: 01/25/21 08:15 Dose: 20 mg Documented by: Dextrose (Dextrose 50% 50 Ml Syringe) 25 - 50 ml IV UD PRN; Protocol PRN Reason: Hypoglycemia Protocol Stop: 02/22/21 17:09 Ferrous Sulfate (Ferrous Sulfate 325 Mg Tab) 325 mg PO BID MIK Stop: 02/22/21 20:59 Last Admin: 01/24/21 08:00 Dose: 325 mg Documented by: Glucagon (Glucagon For Inj 1 Mg Vial) 1 mg SQ UD PRN; Protocol PRN Reason: Hypoglycemia Protocol Stop: 02/22/21 17:09 Glucose (Glucose 10 Tabs/Tube) 4 - 8 tabs PO UD PRN; Protocol PRN Reason: Hypoglycemia Protocol Stop: 02/22/21 17:09 Glucose (Glucose 40% Gel 15 Gm Tube) 15 - 30 gm PO UD PRN; Protocol PRN Reason: Hypoglycemia Protocol Stop: 02/22/21 17:09 Insulin Aspart (Insulin Aspart 100 Units/Ml 3 Ml Pen) 0 units SC ACHS MIK Stop: 02/22/21 17:09 Last Admin: 01/24/21 07:58 Dose: Not Given Documented by: Insulin Glargine (Insulin Glargine Solostar 100 Units/Ml 3 Ml Pen) 0 - 8 units SC BID MIK Stop: 02/22/21 20:59 Last Admin: 01/23/21 21:09 Dose: 8 units Documented by: Memantine (Memantine Hcl 5 Mg Tab) 5 mg PO QAM MIK Stop: 02/24/21 08:59 Last Admin: 01/25/21 08:14 Dose: 5 mg Documented by: Miscellaneous (Carbohydrates For Hypoglycemia ) 15 - 30 gm PO UD PRN PRN Reason: Hypoglycemia Protocol Stop: 02/22/21 17:09 Last Admin: 01/24/21 06:52 Dose: 15 gm Documented by: Miscellaneous (Loteprednol Etabonate [Lotemax] 0.5 % Drops,Gel Order Awaiting Action) 1 ea N/A QS MIK Stop: 02/23/21 00:00 Last Admin: 01/25/21 16:20 Dose: Not Given Documented by: Miscellaneous (Nepafenac [Ilevro] 0.3 % Drops,Suspension Order Awaiting Action) 1 ea N/A QS MIK Stop: 02/23/21 00:00 Last Admin: 01/25/21 16:20 Dose: Not Given Documented by: Miscellaneous Information (Pharmacist Discharge Med Rec Consult) 1 ea N/A UD PRN PRN Reason: Consult Stop: 02/22/21 17:09 Multivitamins/Minerals (Cerovite Adv Formula Tab) 1 tab PO DAILY MIK Stop: 02/23/21 08:59 Last Admin: 01/25/21 08:15 Dose: 1 tab Documented by: Prednisolone Acetate (Prednisolone Acetate 1% Op Susp 5 Ml Btl) 1 drops OPR DAILY MIK Stop: 02/23/21 08:59 Last Admin: 01/25/21 08:15 Dose: 1 drops Documented by: Timolol Maleate (Timolol Maleate 0.5% Op Soln 5 Ml Btl) 1 drops OPB DAILY MIK Stop: 02/23/21 08:59 Last Admin: 01/25/21 08:16 Dose: 1 drops Documented by: Tramadol HCl (Tramadol Hcl 50 Mg Tablet) 50 mg PO Q4H PRN PRN Reason: severe breakthorugh pain Stop: 02/23/21 18:39 Vitamin D (Cholecalciferol 1,000 Units 25 Mcg Tab) 2,000 units PO DAILY MIK Stop: 02/23/21 08:59 Last Admin: 01/25/21 08:15 Dose: 2,000 units Documented by: (1) Diabetes Diabetes mellitus complication status: without complication Diabetes mellitus buttermaker insulin use: without usp use Diabetes mellitus type: type 2 Qualified Code(s): E11.9 - Type 2 diabetes mellitus without complications
[2021-01-26] MEDS: ACETAMINOPHEN 500 MG TAB PO SCH ×2 (06:08→15:50)
[2021-01-26 06:45] LABS: Basophils # (auto) 0.09 K/uL (0-0.2); Basophils % (auto) 1.4 %; Eosinophils # (auto) 0.38 K/uL (0-0.5); Hematocrit (blood only) 31.7 % (37-47); Hemoglobin 10.4 g/dL (12.0-16.0); Immature Granulocytes # (auto) 0.01 K/uL (0.00-0.02); Immature Granulocytes % (auto) 0.2 %; Lymphocytes % (auto) 20.7 %; Mean Corpuscular Hemoglobin 32.1 pg (25-34); Mean Corpuscular Hgb Conc 32.8 g/dL (32-36); Mean Corpuscular Volume 97.8 fL (80-100); Mean Platelet Volume 8.2 fL (7.4-10.4); Monocytes # (auto) 0.52 K/uL (0.11-0.59); Monocytes % (auto) 8.3 %; Neutrophils # (auto) 3.99 K/uL (1.4-6.5); Neutrophils % (auto) 63.4 %; Platelet Count 374 K/uL (130-400); RDW Coefficient of Variation 12.5 % (11.5-14.5); RDW Standard Deviation 44.7 fL (36.4-46.3); Red Blood Count 3.24 M/uL (4.2-5.4); White Blood Count 6.29 K/uL (4.8-10.8)
[2021-01-26 07:14] LABS: BUN Creatinine Ratio 29.2 (10-20); Calcium 9.5 mg/dl (8.5-10.1); Creatinine Clr Calc Pharmacy 29.6 ml/min; Est GFR (Non-African American) 55.3 ml/min; Potassium 4.2 mmol/L (3.5-5.1)
[2021-01-26] MEDS: ASPIRIN 81 MG ECTAB PO SCH (08:28)
[2021-01-26] MEDS: CHOLECALCIFEROL 1,000 UNITS 25 MCG TAB PO SCH (08:28)
[2021-01-26] MEDS: CEROVITE ADV FORMULA TAB PO SCH (08:28)
[2021-01-26] MEDS: lisinopril 10 MG TAB PO SCH (08:28)
[2021-01-26] MEDS: ATORVASTATIN 20 MG TAB PO SCH (08:28)
[2021-01-26] MEDS: MEMANTINE HCL 5 MG TAB PO SCH (08:28)
[2021-01-26] MEDS: prednisoLONE acetate 1% OP SUSP 5 ML BTL OPR SCH (08:34)
[2021-01-26] MEDS: ILEVRO OPR SCH (08:37)
[2021-01-26] MEDS: TIMOLOL MALEATE 0.5% OP SOLN 5 ML BTL OPB SCH (08:39)
--- NOTE | 2021-01-26 15:02 | Hospitalist Progress Note ---
Date of Service January 26, 2021 Assessment & Plan (1) Hypoglycemia: Plan: Diabetic reported to be on glimepiride, metformin, actos and Januvia at home. Hypoglycemic prior to arrival to ED and also hypoglycemic initially during hospitalization. Possibly the result of glimepiride plus other oral hypoglycemics. She is doing well off all medications at this time. Cont to monitor blood sugar. All insulin has been held at this point and will simply monitor blood sugars, correcting as needed. Encourage PO intake. (2) Peripheral vascular disease: Plan: cont medical management with aspirin/statin (3) Arterial stenosis: Plan: cerebrovascular stenosis noted with carotid disease present. Cont medical therapy with ASA and statin (4) Acute hyponatremia: Plan: Resolved into normal range. Cont to encourage good oral intake. (5) Clavicle fracture: Plan: Slightly displaced right distal clavicular fracture likely related to recent fall at [facility] 1-2 weeks ago (reported by sons). Sling with conservative management per Ortho given comorbidities. Scheduled Tylenol may be causing too much fatigue. PRN. (6) Closed rib fracture: Plan: supportive care, encourage incentive spirometry and OOB with assistance as often as possible. (7) Anemia: Plan: No iron deficiency present. Stop iron supplementation as this can result in constipation. Likely multifactorial, possibly related to recent phlebotomy, or dilution from IVF. Stable, cont to monitor intermittently (8) Acute renal insufficiency: Plan: Resolved to baseline after IVF. STage III CKD at baseline. (9) Dementia: Plan: Appears to be at her baseline mental status. Cont Namenda per home regimen. Reorient as needed. (10) Diabetes: Plan: Hypoglycemia driving admission-holding all hypoglycemic medications as above. (11) Hypertension: Plan: cont lisinopril per home regimen. (12) DVT prophylaxis: Plan: SCDs--hold chemoprophylaxis in setting of decreasing H/H DNR/DNI Dispo rehab when medically stable. DO Radha Eastman Plan: Heparin DNR/DNI Disposition-transfer of telemetry, likely transfer to SNF in a.m. pending authorization from insurance an open bed. DO Radha Eastman Admission and Anticipated Discharge Date Admission Date: January 23, 2021 Subjective 85 yo F with dementia who presented from a [facility] after a fall and concern for left-sided weakness, possible TIA. Initially this morning reported some generalized malaise but could not quite specify where. Denied pain. On further assessment later this afternoon she was talking with her son and appeared very spry and without issues. She is tolerating p.o. and doing well. Glucose is remaining at goal off insulin at this point. Son has a plan to take her to Dr. Tate from [facility] next week. It appears the Tylenol may be making her slightly too sleepy. We will hold on this now. Discussed with son. Review of Systems Review of Systems: At least ten systems were reviewed and negative except as indicated in HPI above. Physical Exam Physical Exam: CONSTITUTIONAL: WNWD, vitals as above, generally well- appearing EYES: pupils are round and equal bilaterally, normal conjunctivae, no scleral icterus ENT: external ear and nose normal, MMM NECK: trachea midline RESPIRATORY: clear to auscultation bilaterally, no crackles, rales or wheezes, normal respiratory effort CARDIOVASCULAR: regular rate and rhythm, S1 and 2 heard without murmurs, gallops or rubs, no JVD, no peripheral edema CHEST: inspection of chest was normal, right arm with restricted ROM GASTROINTESTINAL: normal bowel sounds, soft, nontender, no hepatomegaly, no guarding MUSCULOSKELETAL: strength 5/5 throughout (except right arm restricted 2/2 sling, right hand call center agent intact), no chest wall TTP. SKIN: warm and dry NEUROLOGIC: No facial palsy, no dysarthria. CN 2-12 grossly intact, no sensory deficit, normal cognition, normal speech, no tremor PSYCHIATRIC: alert, at baseline mental status, slightly combative. Results & Data Results & Data ([facility]) Vital Signs (Past 12 Hours) Vital Signs Temp Pulse Resp BP Pulse Ox 01/26/21 08:07 36.8 C 87 18 136/70 90 Laboratory Results Short CBC 01/26/21 Range/Units 06:18 WBC 6.29 (4.8-10.8) K/uL Hgb 10.4 L (12.0-16.0) g/dL Hct 31.7 L (37-47) % Plt Count 374 (130-400) K/uL [facility] 01/26/21 06:18 Sodium 138 Potassium 4.2 Chloride 106 Carbon Dioxide 29 BUN 27 H Creatinine 0.93 Glucose 123 H Calcium 9.5 Medications Administered Current Inpatient Medications Acetaminophen (Acetaminophen 500 Mg Tab) 1,000 mg PO Q8H [facility] Stop: 02/23/21 22:59 Last Admin: 01/26/21 06:08 Dose: 1,000 mg Documented by: Aspirin (Aspirin 81 Mg Ectab) 81 mg PO QAM [facility] Stop: 02/23/21 08:59 Last Admin: 01/26/21 08:28 Dose: 81 mg Documented by: Atorvastatin Calcium (Atorvastatin 20 Mg Tab) 20 mg PO DAILY MIK Stop: 02/23/21 08:59 Last Admin: 01/26/21 08:28 Dose: 20 mg Documented by: Dextrose (Dextrose 50% 50 Ml Syringe) 25 - 50 ml IV UD PRN; Protocol PRN Reason: Hypoglycemia Protocol Stop: 02/22/21 17:09 Glucagon (Glucagon For Inj 1 Mg Vial) 1 mg SQ UD PRN; Protocol PRN Reason: Hypoglycemia Protocol Stop: 02/22/21 17:09 Glucose (Glucose 10 Tabs/Tube) 4 - 8 tabs PO UD PRN; Protocol PRN Reason: Hypoglycemia Protocol Stop: 02/22/21 17:09 Glucose (Glucose 40% Gel 15 Gm Tube) 15 - 30 gm PO UD PRN; Protocol PRN Reason: Hypoglycemia Protocol Stop: 02/22/21 17:09 Lisinopril (Lisinopril 10 Mg Tab) 10 mg PO QAM [facility] Stop: 02/25/21 08:59 Last Admin: 01/26/21 08:28 Dose: 10 mg Documented by: Memantine (Memantine Hcl 5 Mg Tab) 5 mg PO QAM [facility] Stop: 02/24/21 08:59 Last Admin: 01/26/21 08:28 Dose: 5 mg Documented by: Miscellaneous (Carbohydrates For Hypoglycemia ) 15 - 30 gm PO UD PRN PRN Reason: Hypoglycemia Protocol Stop: 02/22/21 17:09 Last Admin: 01/24/21 06:52 Dose: 15 gm Documented by: Miscellaneous Information (Pharmacist Discharge Med Rec Consult) 1 ea N/A UD PRN PRN Reason: Consult Stop: 02/22/21 17:09 Multivitamins/Minerals (Cerovite Adv Formula Tab) 1 tab PO DAILY [facility] Stop: 02/23/21 08:59 Last Admin: 01/26/21 08:28 Dose: 1 tab Documented by: Loteprednol Etabonate [Lotemax] 0.5 % Drops,Gel 1 ea OPL MoWeFr MIK Stop: 02/26/21 08:59 Ilevro~Non-Formulary (Patient's Own Med) 1 ea OPR DAILY MIK Stop: 02/25/21 08:59 Last Admin: 01/26/21 08:37 Dose: 1 drops Documented by: Prednisolone Acetate (Prednisolone Acetate 1% Op Susp 5 Ml Btl) 1 drops OPR DAILY MIK Stop: 02/23/21 08:59 Last Admin: 01/26/21 08:34 Dose: 1 drops Documented by: Timolol Maleate (Timolol Maleate 0.5% Op Soln 5 Ml Btl) 1 drops OPB DAILY MIK Stop: 02/23/21 08:59 Last Admin: 01/26/21 08:39 Dose: 1 drops Documented by: Tramadol HCl (Tramadol Hcl 50 Mg Tablet) 50 mg PO Q4H PRN PRN Reason: severe breakthorugh pain Stop: 02/23/21 18:39 Vitamin D (Cholecalciferol 1,000 Units 25 Mcg Tab) 2,000 units PO DAILY MIK Stop: 02/23/21 08:59 Last Admin: 01/26/21 08:28 Dose: 2,000 units Documented by: (1) Diabetes Diabetes mellitus complication status: without complication Diabetes mellitus long term care social worker insulin use: without retirement use Diabetes mellitus type: type 2 Qualified Code(s): E11.9 - Type 2 diabetes mellitus without complications
[2021-01-26] MEDS ORDERED: ACETAMINOPHEN 325 MG TAB PO PRN (20:07)
[2021-01-26] MEDS: HEPARIN SOD 5,000 UNIT/0.5 ML VIAL SQ SCH (20:19)
[2021-01-27] MEDS: ASPIRIN 81 MG ECTAB PO SCH (09:15)
[2021-01-27] MEDS: lisinopril 10 MG TAB PO SCH (09:15)
[2021-01-27] MEDS: ATORVASTATIN 20 MG TAB PO SCH (09:15)
[2021-01-27] MEDS: MEMANTINE HCL 5 MG TAB PO SCH (09:15)
[2021-01-27] MEDS: CEROVITE ADV FORMULA TAB PO SCH (09:15)
[2021-01-27] MEDS: CHOLECALCIFEROL 1,000 UNITS 25 MCG TAB PO SCH (09:16)
[2021-01-27] MEDS: HEPARIN SOD 5,000 UNIT/0.5 ML VIAL SQ SCH ×2 (09:16→20:41)
[2021-01-27] MEDS: prednisoLONE acetate 1% OP SUSP 5 ML BTL OPR SCH (09:16)
[2021-01-27] MEDS: LOTEPREDNOL ETABONATE 0.5% OPL SCH (09:17)
[2021-01-27] MEDS: TIMOLOL MALEATE 0.5% OP SOLN 5 ML BTL OPB SCH (09:17)
[2021-01-27] MEDS: ILEVRO OPR SCH (09:17)
--- NOTE | 2021-01-27 15:47 | Hospitalist Progress Note ---
Date of Service January 27, 2021 Assessment & Plan (1) Hypoglycemia: Plan: Diabetic reported to be on glimepiride, metformin, actos and Januvia at home. Hypoglycemic prior to arrival to ED and also hypoglycemic initially during hospitalization. Possibly the result of glimepiride plus other oral hypoglycemics. She is doing well off all medications at this time. Cont to monitor blood sugar. All insulin has been held at this point and will simply monitor blood sugars, correcting as needed. Encourage PO intake. (2) Peripheral vascular disease: Plan: cont medical management with aspirin/statin (3) Arterial stenosis: Plan: cerebrovascular stenosis noted with carotid disease present. Cont medical therapy with ASA and statin (4) Acute hyponatremia: Plan: Resolved into normal range. Cont to encourage good oral intake. (5) Clavicle fracture: Plan: Slightly displaced right distal clavicular fracture likely related to recent fall at [facility] 1-2 weeks ago (reported by sons). Sling with conservative management per Ortho given comorbidities. Scheduled Tylenol may be causing too much fatigue. PRN. (6) Closed rib fracture: Plan: supportive care, encourage incentive spirometry and OOB with assistance as often as possible. (7) Anemia: Plan: No iron deficiency present. Stop iron supplementation as this can result in constipation. Likely multifactorial, possibly related to recent phlebotomy, or dilution from IVF. Stable, cont to monitor intermittently (8) Acute renal insufficiency: Plan: Resolved to baseline after IVF. Stage III CKD at baseline. (9) Dementia: Plan: Appears to be at her baseline mental status. Cont Namenda per home regimen. Reorient as needed. (10) Diabetes: Plan: Hypoglycemia driving admission-holding all hypoglycemic medications as above. (11) Hypertension: Plan: cont lisinopril per home regimen. (12) DVT prophylaxis: Plan: Heparin DNR/DNI Dispo rehab when medically stable. COVID isolation extending LOS for the time being pending clearance of this or if isolation bed available at receiving facility. DO Radha Eastman Plan: Heparin DNR/DNI Disposition-transfer of telemetry, likely transfer to SNF in a.m. pending authorization from insurance an open bed. DO Radha Eastman Admission and Anticipated Discharge Date Admission Date: January 23, 2021 Subjective 85 yo F with dementia who presented from a [facility] after a fall and concern for left-sided weakness which has resolved. Dementia precludes accurate history Denies pain and appears in pleasant mood. Tolerating PO Isolated in covid room after exposure to covid positive patient. Review of Systems Review of Systems: cannot accurately review all ROS as patient has end stage dementia. Physical Exam Physical Exam: CONSTITUTIONAL: WNWD, vitals as above, generally well- appearing EYES: normal conjunctivae, no scleral icterus ENT: external ear and nose normal, MMM NECK: trachea midline RESPIRATORY: clear to auscultation bilaterally, no crackles, rales or wheezes, normal respiratory effort CARDIOVASCULAR: regular rate and rhythm, S1 and 2 heard without murmurs, gallops or rubs, no JVD, no peripheral edema CHEST: inspection of chest was normal, right arm with restricted ROM GASTROINTESTINAL: normal bowel sounds, soft, nontender, nondistended. MUSCULOSKELETAL: strength 5/5 throughout (except right arm restricted 2/2 sling, right hand elevator operator service intact), no chest wall TTP. SKIN: warm and dry NEUROLOGIC: No facial palsy, no dysarthria. CN 2-12 grossly intact, no sensory deficit, normal cognition, normal speech, no tremor PSYCHIATRIC: alert, at baseline mental status Results & Data Results & Data ([facility]) Vital Signs (Past 12 Hours) Vital Signs Temp Pulse Resp BP BP Pulse Ox 01/27/21 14:54 37.1 C 80 16 129/81 94 01/27/21 07:54 36.8 C 70 18 136/66 95 Medications Administered Current Inpatient Medications Acetaminophen (Acetaminophen 325 Mg Tab) 650 mg PO Q4H PRN PRN Reason: pain/fever Stop: 02/25/21 20:06 Aspirin (Aspirin 81 Mg Ectab) 81 mg PO QAM MIK Stop: 02/23/21 08:59 Last Admin: 01/27/21 09:15 Dose: 81 mg Documented by: Atorvastatin Calcium (Atorvastatin 20 Mg Tab) 20 mg PO DAILY [facility] Stop: 02/23/21 08:59 Last Admin: 01/27/21 09:15 Dose: 20 mg Documented by: Dextrose (Dextrose 50% 50 Ml Syringe) 25 - 50 ml IV UD PRN; Protocol PRN Reason: Hypoglycemia Protocol Stop: 02/22/21 17:09 Glucagon (Glucagon For Inj 1 Mg Vial) 1 mg SQ UD PRN; Protocol PRN Reason: Hypoglycemia Protocol Stop: 02/22/21 17:09 Glucose (Glucose 10 Tabs/Tube) 4 - 8 tabs PO UD PRN; Protocol PRN Reason: Hypoglycemia Protocol Stop: 02/22/21 17:09 Glucose (Glucose 40% Gel 15 Gm Tube) 15 - 30 gm PO UD PRN; Protocol PRN Reason: Hypoglycemia Protocol Stop: 02/22/21 17:09 Heparin Sodium (Porcine) (Heparin Sod 5,000 Unit/0.5 Ml Vial) 5,000 units SQ Q12 MIK Stop: 02/25/21 20:59 Last Admin: 01/27/21 09:16 Dose: 5,000 units Documented by: Lisinopril (Lisinopril 10 Mg Tab) 10 mg PO QAM MIK Stop: 02/25/21 08:59 Last Admin: 01/27/21 09:15 Dose: 10 mg Documented by: Memantine (Memantine Hcl 5 Mg Tab) 5 mg PO QAM MIK Stop: 02/24/21 08:59 Last Admin: 01/27/21 09:15 Dose: 5 mg Documented by: Miscellaneous (Carbohydrates For Hypoglycemia ) 15 - 30 gm PO UD PRN PRN Reason: Hypoglycemia Protocol Stop: 02/22/21 17:09 Last Admin: 01/24/21 06:52 Dose: 15 gm Documented by: Miscellaneous Information (Pharmacist Discharge Med Rec Consult) 1 ea N/A UD PRN PRN Reason: Consult Stop: 02/22/21 17:09 Multivitamins/Minerals (Cerovite Adv Formula Tab) 1 tab PO DAILY MIK Stop: 02/23/21 08:59 Last Admin: 01/27/21 09:15 Dose: 1 tab Documented by: Loteprednol Etabonate [Lotemax] 0.5 % Drops,Gel 1 ea OPL MoWeFr MIK Stop: 02/26/21 08:59 Last Admin: 01/27/21 09:17 Dose: 1 drops Documented by: Ilevro~Non-Formulary (Patient's Own Med) 1 ea OPR DAILY MIK Stop: 02/25/21 08:59 Last Admin: 01/27/21 09:17 Dose: 1 drops Documented by: Prednisolone Acetate (Prednisolone Acetate 1% Op Susp 5 Ml Btl) 1 drops OPR DAILY MIK Stop: 02/23/21 08:59 Last Admin: 01/27/21 09:16 Dose: 1 drops Documented by: Timolol Maleate (Timolol Maleate 0.5% Op Soln 5 Ml Btl) 1 drops OPB DAILY MIK Stop: 02/23/21 08:59 Last Admin: 01/27/21 09:17 Dose: 1 drops Documented by: Tramadol HCl (Tramadol Hcl 50 Mg Tablet) 50 mg PO Q4H PRN PRN Reason: severe breakthorugh pain Stop: 02/23/21 18:39 Vitamin D (Cholecalciferol 1,000 Units 25 Mcg Tab) 2,000 units PO DAILY MIK Stop: 02/23/21 08:59 Last Admin: 01/27/21 09:16 Dose: 2,000 units Documented by: (1) Diabetes Diabetes mellitus complication status: without complication Diabetes mellitus termite helper insulin use: without termite helper use Diabetes mellitus type: type 2 Qualified Code(s): E11.9 - Type 2 diabetes mellitus without complications
[2021-01-28] MEDS: lisinopril 10 MG TAB PO SCH (09:12)
[2021-01-28] MEDS: ATORVASTATIN 20 MG TAB PO SCH (09:12)
[2021-01-28] MEDS: CHOLECALCIFEROL 1,000 UNITS 25 MCG TAB PO SCH (09:12)
[2021-01-28] MEDS: HEPARIN SOD 5,000 UNIT/0.5 ML VIAL SQ SCH ×2 (09:13→20:15)
[2021-01-28] MEDS: ASPIRIN 81 MG ECTAB PO SCH (09:13)
[2021-01-28] MEDS: MEMANTINE HCL 5 MG TAB PO SCH (09:13)
[2021-01-28] MEDS: CEROVITE ADV FORMULA TAB PO SCH (09:13)
[2021-01-28] MEDS: LOTEPREDNOL ETABONATE 0.5% OPL SCH (09:14)
[2021-01-28] MEDS: ILEVRO OPR SCH (09:14)
[2021-01-28] MEDS: TIMOLOL MALEATE 0.5% OP SOLN 5 ML BTL OPB SCH (09:15)
[2021-01-28] MEDS: prednisoLONE acetate 1% OP SUSP 5 ML BTL OPR SCH (09:15)
[2021-01-28] MEDS ORDERED: GLYCERIN ADULT 12 SUPP/BOX SUPP PR PRN (18:13)
[2021-01-28] MEDS: POLYETHYLENE (MIRALAX) 17 GM PACK PO SCH (18:44)
--- NOTE | 2021-01-28 21:35 | Hospitalist Progress Note ---
Date of Service January 28, 2021 Assessment & Plan (1) Hypoglycemia: Plan: Diabetic reported to be on glimepiride, metformin, actos and Januvia at home. Hypoglycemic prior to arrival to ED and also hypoglycemic initially during hospitalization. Possibly the result of glimepiride plus other oral hypoglycemics and the cause for admission which was originally thought to be a TIA.. She is doing well off all medications at this time. Cont to monitor blood sugar. All insulin has been held at this point and will simply monitor blood sugars, correcting as needed. Encourage PO intake. (2) Peripheral vascular disease: Plan: cont medical management with aspirin/statin (3) Arterial stenosis: Plan: cerebrovascular stenosis noted with carotid disease present. Cont medical therapy with ASA and statin (4) Acute hyponatremia: Plan: Resolved into normal range. Cont to encourage good oral intake. (5) Clavicle fracture: Plan: Slightly displaced right distal clavicular fracture likely related to recent fall at [facility] 1-2 weeks ago (reported by sons). Sling with conservative management per Ortho given comorbidities. Scheduled Tylenol may be causing too much fatigue. PRN. Follow-up with orthopedics in 2 weeks--poor surgical candidate. (6) Closed rib fracture: Plan: supportive care, encourage incentive spirometry and OOB with assistance as often as possible. (7) Anemia: Plan: No iron deficiency present. Stop iron supplementation as this can result in constipation. Likely multifactorial, possibly related to recent phlebotomy, or dilution from IVF. Stable, cont to monitor intermittently (8) Acute renal insufficiency: Plan: Resolved to baseline after IVF. Stage III CKD at baseline. (9) Dementia: Plan: Appears to be at her baseline mental status. Cont Namenda per home regimen. Reorient as needed. (10) Diabetes: Plan: Hypoglycemia driving admission-holding all hypoglycemic medications as above. (11) Hypertension: Plan: cont lisinopril per home regimen. (12) DVT prophylaxis: Plan: Heparin DNR/DNI Dispo rehab when medically stable. COVID isolation lifted today. DO Radha Eastmanist Plan: Heparin DNR/DNI Disposition-transfer of telemetry, likely transfer to SNF in a.m. pending authorization from insurance an open bed. DO Radha Eastman Admission and Anticipated Discharge Date Admission Date: January 23, 2021 Subjective 85 yo F with dementia who presented from a [facility] after a fall and concern for left-sided weakness which has resolved. Dementia precludes accurate history Denies pain and appears in pleasant mood. Tolerating PO covid isolation precautions removed. Review of Systems Review of Systems: no ROS 2/2 dementia-denies pain Physical Exam Physical Exam: CONSTITUTIONAL: WNWD, vitals as above, generally well- appearing EYES: normal conjunctivae, no scleral icterus ENT: external ear and nose normal, MMM NECK: trachea midline RESPIRATORY: clear to auscultation bilaterally, no crackles, rales or wheezes, normal respiratory effort CARDIOVASCULAR: regular rate and rhythm, S1 and 2 heard without murmurs, gallops or rubs, no JVD, no peripheral edema CHEST: inspection of chest was normal, right arm with restricted ROM GASTROINTESTINAL: normal bowel sounds, soft, nontender, nondistended. MUSCULOSKELETAL: strength 5/5 throughout (except right arm restricted 2/2 sling, right hand fish peddler intact), no chest wall TTP. SKIN: warm and dry NEUROLOGIC: No facial palsy, no dysarthria. CN 2-12 grossly intact, no sensory deficit, normal cognition, normal speech, no tremor PSYCHIATRIC: alert, at baseline mental status Results & Data Results & Data ([facility]) Vital Signs (Past 12 Hours) Vital Signs Temp Pulse Resp BP BP Pulse Ox 01/28/21 18:59 37 C 78 16 101/66 96 01/28/21 15:32 36.7 C 76 16 115/63 93 Medications Administered Current Inpatient Medications Acetaminophen (Acetaminophen 325 Mg Tab) 650 mg PO Q4H PRN PRN Reason: pain/fever Stop: 02/25/21 20:06 Aspirin (Aspirin 81 Mg Ectab) 81 mg PO QAM MIK Stop: 02/23/21 08:59 Last Admin: 01/28/21 09:13 Dose: 81 mg Documented by: Atorvastatin Calcium (Atorvastatin 20 Mg Tab) 20 mg PO DAILY [facility] Stop: 02/23/21 08:59 Last Admin: 01/28/21 09:12 Dose: 20 mg Documented by: Dextrose (Dextrose 50% 50 Ml Syringe) 25 - 50 ml IV UD PRN; Protocol PRN Reason: Hypoglycemia Protocol Stop: 02/22/21 17:09 Glucagon (Glucagon For Inj 1 Mg Vial) 1 mg SQ UD PRN; Protocol PRN Reason: Hypoglycemia Protocol Stop: 02/22/21 17:09 Glucose (Glucose 10 Tabs/Tube) 4 - 8 tabs PO UD PRN; Protocol PRN Reason: Hypoglycemia Protocol Stop: 02/22/21 17:09 Glucose (Glucose 40% Gel 15 Gm Tube) 15 - 30 gm PO UD PRN; Protocol PRN Reason: Hypoglycemia Protocol Stop: 02/22/21 17:09 Glycerin (Glycerin Adult 12 Supp/Box Supp) 1 supp ID DAILY PRN PRN Reason: Constipation Stop: 02/27/21 18:12 Heparin Sodium (Porcine) (Heparin Sod 5,000 Unit/0.5 Ml Vial) 5,000 units SQ Q12 MIK Stop: 02/25/21 20:59 Last Admin: 01/28/21 20:15 Dose: 5,000 units Documented by: Lisinopril (Lisinopril 10 Mg Tab) 10 mg PO QAM MIK Stop: 02/25/21 08:59 Last Admin: 01/28/21 09:12 Dose: 10 mg Documented by: Memantine (Memantine Hcl 5 Mg Tab) 5 mg PO QAM MIK Stop: 02/24/21 08:59 Last Admin: 01/28/21 09:13 Dose: 5 mg Documented by: Miscellaneous (Carbohydrates For Hypoglycemia ) 15 - 30 gm PO UD PRN PRN Reason: Hypoglycemia Protocol Stop: 02/22/21 17:09 Last Admin: 01/24/21 06:52 Dose: 15 gm Documented by: Miscellaneous Information (Pharmacist Discharge Med Rec Consult) 1 ea N/A UD PRN PRN Reason: Consult Stop: 02/22/21 17:09 Multivitamins/Minerals (Cerovite Adv Formula Tab) 1 tab PO DAILY MIK Stop: 02/23/21 08:59 Last Admin: 01/28/21 09:13 Dose: 1 tab Documented by: Loteprednol Etabonate [Lotemax] 0.5 % Drops,Gel 1 ea OPL MoWeFr MIK Stop: 02/26/21 08:59 Last Admin: 01/28/21 09:14 Dose: 1 drops Documented by: Ilevro~Non-Formulary (Patient's Own Med) 1 ea OPR DAILY MIK Stop: 02/25/21 08:59 Last Admin: 01/28/21 09:14 Dose: 1 drops Documented by: Polyethylene Glycol (Polyethylene (Miralax) 17 Gm Pack) 17 gm PO DAILY MIK Stop: 02/27/21 18:14 Last Admin: 01/28/21 18:44 Dose: 17 gm Documented by: Prednisolone Acetate (Prednisolone Acetate 1% Op Susp 5 Ml Btl) 1 drops OPR DAILY MIK Stop: 02/23/21 08:59 Last Admin: 01/28/21 09:15 Dose: 1 drops Documented by: Timolol Maleate (Timolol Maleate 0.5% Op Soln 5 Ml Btl) 1 drops OPB DAILY MIK Stop: 02/23/21 08:59 Last Admin: 01/28/21 09:15 Dose: 1 drops Documented by: Tramadol HCl (Tramadol Hcl 50 Mg Tablet) 50 mg PO Q4H PRN PRN Reason: severe breakthorugh pain Stop: 02/23/21 18:39 Vitamin D (Cholecalciferol 1,000 Units 25 Mcg Tab) 2,000 units PO DAILY MIK Stop: 02/23/21 08:59 Last Admin: 01/28/21 09:12 Dose: 2,000 units Documented by: (1) Diabetes Diabetes mellitus type: type 2 Diabetes mellitus custodial insulin use: without custodial use Diabetes mellitus complication status: without complication Qualified Code(s): E11.9 - Type 2 diabetes mellitus without complications
[2021-01-29] MEDS: ATORVASTATIN 20 MG TAB PO SCH (07:46)
[2021-01-29] MEDS: POLYETHYLENE (MIRALAX) 17 GM PACK PO SCH (07:46)
[2021-01-29] MEDS: CHOLECALCIFEROL 1,000 UNITS 25 MCG TAB PO SCH (07:47)
[2021-01-29] MEDS: CEROVITE ADV FORMULA TAB PO SCH (07:47)
[2021-01-29] MEDS: MEMANTINE HCL 5 MG TAB PO SCH (07:47)
[2021-01-29] MEDS: HEPARIN SOD 5,000 UNIT/0.5 ML VIAL SQ SCH (07:47)
[2021-01-29] MEDS: lisinopril 10 MG TAB PO SCH (07:47)
[2021-01-29] MEDS: ASPIRIN 81 MG ECTAB PO SCH (07:47)
[2021-01-29] MEDS: TIMOLOL MALEATE 0.5% OP SOLN 5 ML BTL OPB SCH (07:48)
[2021-01-29] MEDS: ILEVRO OPR SCH (07:48)
[2021-01-29] MEDS: prednisoLONE acetate 1% OP SUSP 5 ML BTL OPR SCH (07:48)
[2021-01-29] MEDS ORDERED: STROKE PATIENT DISCHARGE STA (13:02)
--- NOTE | 2021-01-29 20:47 | Discharge Summary ---
Date of Service January 29, 2021 Admission HPI Per Admitting Provider This is an 85-year-old female who resides in personal care who has significant past medical history of dementia, HTN, HLD, endothelial corneal dystrophy, T2DM, HLD, anemia who presents to ED secondary to weakness x1 day. Per nursing staff patient developed left-sided weakness at approximately 11 AM. She was also noted to be hypoglycemic with blood sugars in the 50s and received D10. She does have underlying dementia and therefore history is unobtainable from patient. Son is at bedside. He states over the past few weeks patient has had frequent falls. She will get up on her own and fall. Last fall was 2 to 3 days ago. Per son patient symptoms had resolved by the time she was received in the ED. Son denies any prior history of stroke. Son is concerned due to patient's frequent falls and constant complaints of dizziness. Patient was made a telemetry stroke. Case was discussed with the ED provider. She underwent CT head and neck which revealed high-grade M1 stenosis as well as left vertebral ar kiley stenosis. Telemetry neurologist recommended no acute intervention at this time given age and dementia and likely not amenable. He did recommend loading with aspirin and if she were to have stutter symptoms to load with Plavix. She did receive 325 mg of aspirin in the ED. she underwent MRI did reveal a 4 mm focus in the right internal capsule favored to be artifact but could be a tiny subacute lacunar infarct. She was also found to be hyponatremic, BETY, and anemic. She was admitted for further work-up. ROS unobtainable secondary to underlying cognition. Of significance she was seen and evaluated in ED on 01/16 secondary to dizziness. She was discharged back to personal care. Admission Exam Per Admitting Provider Constitutional: Petite, elderly, female, alert and oriented to self only, vitals as above, NAD, sitting up in bed, pleasant, answers questions but not appropriate Head: Normocephalic, Atraumatic Eyes: PERRL, conjunctivae normal, anicteric sclerae ENMT: external ear and nose normal, oropharynx normal Neck: trachea midline, no thyromegaly normal visual inspection Respiratory: normal respiratory effort, lungs clear to auscultation, no wheeze, rales, rhonchi. Normal insp/exp effort, no accessory muscle use Cardiovascular: RRR, no murmur, no edema Vessels: no JVD or carotid bruit Chest: normal inspection of chest Abdomen: normal bowel sounds, soft, nontender, no hepatosplenomegaly Musculoskeletal: no cyanosis or clubbing, extremities motor strength 4/5, staff veterinarian strength reduced on the left. Range of motion not tested assessed on right upper extremity secondary to fracture Skin: no rashes, warm and dry normal turgor Neurologic: PERRL, EOMI, accommodation nl, no face palsy, no dysarthria CN's II-XI intact bilaterally and moves all extremities Psychiatric: A+Ox1, euthymic affect Lymphatic: no cervical or axillary lymphadenopathy : deferred Principal Diagnosis strokelike presentation secondary to hypoglycemia slightly displaced right clavicular fracture secondary to recent fall (1-2 weeks ago [employer] per son) Discharge Exam CONSTITUTIONAL: WNWD, vitals as above, generally well-appearing EYES: normal conjunctivae, no scleral icterus ENT: external ear and nose normal, MMM NECK: trachea midline RESPIRATORY: clear to auscultation bilaterally, no crackles, rales or wheezes, normal respiratory effort CARDIOVASCULAR: regular rate and rhythm, S1 and 2 heard without murmurs, gallops or rubs, no JVD, no peripheral edema CHEST: inspection of chest was normal, right arm with restricted ROM GASTROINTESTINAL: normal bowel sounds, soft, nontender, nondistended. MUSCULOSKELETAL: strength 5/5 throughout (except right arm restricted 2/2 sling, right hand staff veterinarian intact), no chest wall TTP. SKIN: warm and dry NEUROLOGIC: No facial palsy, no dysarthria. CN 2-12 grossly intact, no sensory deficit, normal cognition, normal speech, no tremor PSYCHIATRIC: alert, at baseline mental status Discharge Data Allergies Allergy/AdvReac Type Severity Reaction Status Date / Time ampicillin Allergy Unknown ITCHING Verified 01/23/21 14:35 RASH cortisone Allergy Unknown DIZZINESS Verified 01/23/21 14:35 Consultations 01/23/21 14:29 ED Decision to Admit Stat 01/23/21 17:10 Consult Neurology Routine 01/23/21 17:36 Consult Orthopedic Surgery Routine Ordered Studies 01/23/21 12:07 CT angio head w con Stat CT angio neck with con Stat CT head/brain wo con Stat 01/23/21 14:08 MR brain wo con Stat Hospital Course (1) Stroke-like symptoms: (2) Hypoglycemia: She was managed for the following as an inpatient: #. Hypoglycemia #. Strokelike symptoms secondary to hypoglycemia Patient's home medications were held while inpatient, patient was not on any insulin while inpatient. Maintained blood glucose in the high 180s to low 200s. All diabetic medications are stopped at discharge except for Metformin. Patient to follow-up with her PCP within a week's time for medication readjustment. Patient to take blood glucose level daily #. Peripheral vascular disease/arterial stenosis cont medical management with aspirin/statin #. Acute hyponatremia: Resolved into normal range. Encourage good oral intake #. Clavicle fracture: Slightly displaced right distal clavicular fracture likely related to recent fall at [facility] 1-2 weeks ago (reported by sons). Sling with conservative management per Ortho given comorbidities. Scheduled Tylenol may be causing too much fatigue. PRN. Follow-up with orthopedics in 2 weeks--poor surgical candidate. #. Closed rib fracture: Plan: supportive care, encourage incentive spirometry and OOB with assistance as often as possible. Was on heparin for DVT prophylaxis while inpatient. DNR/DNI Discharged to personal senior care. Following instructions authenticated at the time of discharge: `Since you presented with hypoglycemia, your all diabetic medication has been stopped except for Metformin. Continue to take Metformin as prescribed. Have close follow-up with your PCP within a week's time for necessary medication readjustment. Check your fingerstick sugar daily and if it is more than 180 mg/dL despite being on metformin, inform your PCP. `Continue to take your other medications as prescribed. `For your right distal clavicular fracture, follow-up with orthopedics in 2 weeks for reevaluation and repeat x-rays of your clavicle. Continue to maintain sling support which will help with pain management along with healing. `Have your blood pressure measured daily/as needed. Avoid hypotension. [place] blood pressure will be in the systolic blood pressure 120s to 130s mmHg. Total Time Total Time Spent Total Time Spent (In Minutes): 40 Discharge Plan Discharge Items Patient Disposition: Personal Long-Term Reason For Visit: STROKE LIKE SX Discharge Diagnosis: strokelike presentation secondary to hypoglycemia slightly displaced right clavicular fracture secondary to recent fall (1-2 weeks ago [employer] per son) Activity: Resume your previous activity Non-emergency contact: Primary Care Provider Call non-emergency contact if: you have any medication questions, your symptoms worsen, your pain is not controlled and your pain is worsening Follow-up/Referrals: [facility] [Other] - 02/09/21 12:40 pm John Pimentel DO [Primary Care Provider] - Diet: Carb Consistent or DM2 Addtl Attending Provider Instructions: Since you presented with hypoglycemia, your all diabetic medication has been stopped except for Metformin. Continue to take Metformin as prescribed. Have close follow-up with your PCP within a week's time for necessary medication readjustment. Check your fingerstick sugar daily and if it is more than 180 mg/ dL despite being on metformin, inform your PCP. Continue to take your other medications as prescribed. For your right distal clavicular fracture, follow-up with orthopedics in 2 weeks for reevaluation and repeat x-rays of your clavicle. Continue to maintain sling support which will help with pain management along with healing. Have your blood pressure measured daily/as needed. Avoid hypotension. [place] blood pressure will be in the systolic blood pressure 120s to 130s mmHg. Pending Studies at Discharge: No Stand-Alone Forms: My Humanoid, Smoking Cessation Skilled Items Patient informed of condition?: Yes DNR: Yes Discharge Level of Care: Other Communicable Disease: No Discharge Prognosis: Improving Lines: None Urinary Catheter: No Medications and DC Order Prescriptions: Continued ciprofloxacin HCl 0.3 % drops See Rx Instructions ophthalmic (eye) .COMPLEX Qty: 10 RF: 4 acetaminophen 325 mg capsule 325 - 650 mg PO .EVERY 4-6HRS MDD 3g PRN (Reason: Fever Or Pain) RF: 0 atorvastatin 20 mg tablet 20 mg PO DAILY RF: 0 ferrous sulfate 325 mg (65 mg iron) tablet 325 mg PO BID RF: 0 Ilevro 0.3 % drops,suspension 1 drp OPR DAILY RF: 0 lisinopril 10 mg tablet 10 mg PO QAM RF: 0 Lotemax 0.5 % drops,gel 1 drp OPL 3XWK RF: 0 memantine 7 mg capsule,sprinkle,ER 24hr 7 mg PO QAM RF: 0 metformin 500 mg tablet 500 mg PO BID RF: 0 prednisolone acetate 1 % drops,suspension 1 drp OPR DAILY RF: 0 PreserVision AREDS-2 [phone] capsule 1 tab PO BID RF: 0 timolol 0.5 % drops 1 drp OPB DAILY RF: 0 cholecalciferol (vitamin D3) [Vitamin D3] 50 mcg (2,000 unit) Capsule 50 mcg PO DAILY RF: 0 meclizine 12.5 mg tablet 12.5 mg PO Q8H PRN (Reason: Vertigo) RF: 0 Discontinued glimepiride 2 mg tablet 2 mg PO DAILY RF: 0 Januvia 100 mg tablet 100 mg PO DAILY RF: 0 pioglitazone 45 mg tablet 45 mg PO QAM RF: 0 glimepiride 1 mg tablet 1 mg PO DAILY RF: 0 Discharge Orders: Discharge Order (Routine); Ordered 01/29/21 Ordered By: Mumtaz Linn Admission Data Admit Date/Time: 01/23/21 14:29 Attending Provider: Mumtaz Linn Admit Provider: Kayla Venegas Primary Care Provider: John Pimentel Other Providers: Skip Chapa Yantis ; Kayla Venegas ; Sukhjinder Mckenzie ; Jayden Dubon Other Interventions: Discharge Summary Assessment (RN) Last Done: 01/29/21 13:06
== END 2021-01-29 14:55 | disposition home or self-care (01) ==
LOC: ED 12:14 → INTOOBSV 14:29 → SUATTDRO 14:29 → 2S 14:29 → 2W 01-25 19:37